=== PATIENT | female | born 1990 | race Caucasian/White ===

== ENCOUNTER 2022-02-11 10:28 | Inpatient (IN) | payer OTHER, SELFPAY ==
--- NOTE | ~2022-02-11 | CT_ITS ---
EXAMINATION: CT ABDOMEN AND PELVIS WITHOUT CONTRAST CLINICAL INFORMATION: Bilateral flank pain. COMPARISON: CT scan abdomen pelvis 06/30/2017 TECHNIQUE: Multidetector volumetric imaging was performed from the superior aspect of the liver through the pubic symphysis. Sagittal and coronal reformatted images were obtained on the technologist's workstation. This CT examination was performed using dose optimization techniques as appropriate, variously including the following: *Automated exposure control *Adjustment of mA and/or kV according to patient size (this includes techniques or standardized protocols for targeted exams where dose is matched to indication/reason for exam; i.e. extremities or head) *Use of iterative reconstruction technique DLP: 656 mGy-cm FINDINGS: LUNG BASES: Minor scarring or atelectasis at the dependent right posterior lung base. LIVER, GALLBLADDER, AND BILIARY TREE: The liver is normal in size, shape, and attenuation. No focal hepatic lesion or biliary ductal dilatation is present. The gallbladder is unremarkable with no evidence of radiopaque gallstones, gallbladder wall thickening, or obvious pericholecystic inflammatory changes. PANCREAS: Unremarkable. SPLEEN: Unremarkable. ADRENAL GLANDS: Unremarkable. KIDNEYS AND URETERS: The kidneys are normal in size, shape, and attenuation. No hydronephrosis, hydroureter, or calculi seen. No perinephric stranding. BLADDER: Unremarkable. GASTROINTESTINAL TRACT: The small and large bowel are unremarkable. The appendix is unremarkable. ABDOMINAL WALL: No significant hernia is appreciated. LYMPH NODES: Normal. VASCULAR: Unremarkable. PELVIC VISCERA: Unremarkable. OSSEOUS STRUCTURES: Multilevel degenerative spondylosis spine. Slight compression of the superior and inferior endplates with degenerative changes of endplates at L4. This is new since CAT scan 06/30/2017 but is chronic in appearance with no evidence of an acute bone lesion or bone destruction or acute fracture. Slight anterior wedge compression deformity T11 vertebrae which is chronic. The T11 wedge compression deformity is similar to prior CAT scan 06/30/2017. No retropulsed fragments. No acute osseous abnormality. Central spinal canal is open. CT/CT abdomen pelvis wo con IMPRESSION: 1. No acute abnormality the abdomen or pelvis. Normal kidneys ureter and bladder. 2. Degenerative changes of the spine. Chronic anterior wedge compression deformity of the T11 vertebrae unchanged since 06/30/2017. Slight compression of the superior and inferior endplates of the L4 vertebrae which appears to be chronic though new since prior study of 2017. Fleischner guidelines were followed.
--- NOTE | ~2022-02-11 | XR_ITS ---
EXAMINATION: XR CHEST CLINICAL INFORMATION: Fever. COMPARISON: Chest 06/30/2017 TECHNIQUE: Frontal view of the chest was obtained. FINDINGS: No significant abnormality is noted involving the heart, lungs, mediastinum, bony thorax or soft tissues. XR/XR chest 1V IMPRESSION: Unremarkable chest examination.
[2022-02-11 10:42] VITALS: BP 118/87; PULSE 89; RESP 20; TEMP 38.1; O2SAT 99; BMI 29.9
--- NOTE | 2022-02-11 12:44 | ED_ITS ---
HPI - General Adult General Chief complaint: Abdominal Pain Stated complaint: Kidney infection Time Seen by Provider: 02/11/22 12:36 Source: patient Mode of arrival: ambulatory Limitations: no limitations History of Present Illness HPI narrative: Patient comes to the emergency room complaining of bilateral flank pain and strong smell in the urine. Patient denies dysuria. No hematuria. Patient states that she has had history of pyelonephritis in the past. Patient admits to using IV drugs. Related Data Home Medications Medication Instructions Recorded Confirmed levetiracetam 500 mg tablet 1 tab PO BID 02/11/22 02/11/22 Allergies Allergy/AdvReac Type Severity Reaction Status Date / Time bee pollen [BEE STINGS] Allergy Severe ANAPHYLAXIS Unverified 08/13/20 16:20 divalproex sodium Allergy Unknown ITCHY RASH Unverified 08/13/20 16:20 [From DEPAKOTE] kiwi Allergy Unknown anaphylaxis Unverified 05/02/17 00:00 sertraline [Zoloft] Allergy Unknown anaphylaxis Verified 07/19/16 00:00 tegaderm Allergy Unknown rash Unverified 05/02/17 00:00 kiwi AdvReac Unknown DIFFICULTY Unverified 08/13/20 16:20 [KIWI (ACTINIDIA CHINENSIS)] BREATHING TEGIDERM Allergy Mild HIVES Uncoded 08/13/20 16:20 bee sting Allergy Unknown anaphylaxis Uncoded 07/19/16 00:00 bees Allergy Unknown anaphylaxis Uncoded 05/02/17 00:00 depakote Allergy Unknown syncope Uncoded 05/02/17 00:00 From Zoloft Allergy Unknown ANAPHYLAXIS Uncoded 08/13/20 16:20 Zoloft Allergy Unknown Uncoded 05/02/17 00:00 Review of Systems Review of Systems: Constitutional : No Weight loss, No Fever, No Chills, No Night Sweats, No Fatigue, No Malaise ENT/Mouth : No Hearing loss, No Ear Pain, No Nasal Congestion, No Sinus Pain, No Hoarseness, No sore throat, No Rhinorrhea, No Swallowing Difficulty Eyes: No Eye Pain, No Swelling, No Redness, No Foreign Body, No Discharge, No Vision Changes Cardiovascular : No Chest Pain, No SOB, No Dyspnea on Exertion, No Orthopnea, No Edema, No Palpitations Respiratory : No Cough, No Sputum, No Wheezing, No Smoke Exposure, No Dyspnea Gastrointestinal : No Nausea, No Vomiting, No Diarrhea, No Constipation, No abdominal Pain, No Hematochezia, No Melena Genitourinary : no irregular bleeding, No Dysuria, complaining of urinary frequency and strong odor, No Hematuria, No Urinary Incontinence, No Urgency, complaining of bilateral Flank Pain, No Urinary Flow Changes, No Hesitancy Musculoskeletal : No joint pain, No Myalgias, No Joint Swelling Skin : No Skin Lesions, No rash Neuro : No Weakness, No Numbness, No Paresthesias, No Loss of Consciousness, No Dizziness, No Headache Psych : No Anxiety/Panic, No Depression, No SI/HI/AH/VH, No Social Issues, Heme/Lymph: No Bruising, No Bleeding,No Lymphadenopathy Endocrine : No Polyuria, No Polydipsia, No Temperature Intolerance PMFSH Past Medical History Medical History Epilepsia Hepatitis Pyelonephritis Social History Social History Advance Directives: No Advance Directives Information Provided: No Physical Exam ED Vital Signs: Vital Signs - 24 hr 02/11/22 10:42 02/11/22 12:45 02/11/22 18:57 Temperature 100.6 F H 99.5 F 100.5 F H Pulse Rate 89 80 83 Respiratory Rate 20 18 20 Blood Pressure 118/87 114/62 109/63 Pulse Oximetry 99 96 95 02/11/22 19:20 Temperature 99.8 F Pulse Rate 77 Respiratory Rate 16 Blood Pressure 119/69 Pulse Oximetry 95 BMI result Body Mass Index 29.9 Const Other: Appearance: Alert. Somnolent, easily arousable Eyes: Pupils equal, round and reactive to light. 3 mm pupils bilaterally ENT: Pharynx normal. Neck: Normal inspection. Neck supple. No lymph nodes noted. No crepitus CVS: Normal heart rate and rhythm. Pulses normal. Normal S1 and S2 Respiratory: No respiratory distress. Breath sounds normal. No Wheezing. No rales Abdomen: Soft and nontender. No rigidity. No distention. Back: Bilateral CVA tenderness Skin: Skin warm to touch, mildly flushed Extremities: No lower extremity edema. No Lacerations. No Rash, needle track shepard in bilateral upper extremities, no signs of cellulitis Neuro: Oriented X 3. No motor deficit. No sensory deficit. Moving all extremities. No slurred speech. CN 2 through 12 grossly intact Psych: calm, cooperative, normal affect, seems under the influence of drugs Course Course Course Narrative: On arrival, it was noted that patient has a temperature of 100.6 degrees. Patient has UTI symptoms, patient is empirically being treated with levofloxa eunice, patient is receiving 2 L normal saline, fluids being given on an ideal weight of 55 kg, patient is overweight. Patient is a difficult stick. Multiple nurses try getting her parotid cyst. I was able to get an internal jugular on the right side of the neck 15:32, patient has not provided a urine sample. UA is positive, patient likely having pyelonephritis. Patient also seems to have some tenderness in the lumbar area. Patient is IV drug user. We will order CT scan to rule out an abscess. Patient has no neurological deficits Patient discussed with Dr. Zuleta, patient being admitted Medical Decision Making Lab Data Result diagrams: 02/11/22 14:57 02/11/22 14:57 Labs: Lab Results 02/11/22 02/11/22 02/11/22 Range/Units 14:57 14:57 14:57 WBC 13.9 H (4.8-10.8) X10*3/uL RBC 4.15 L (4.20-5.50) X10*6/uL Hgb 12.0 (12.0-16.0) g/dl Hct 37.0 (37.0-47.0) % MCV 89.2 (80.0-98.0) fL MCH 28.9 (27.0-33.0) pg MCHC 32.4 (31.0-35.0) g/dl RDW 14.9 (11.0-16.0) % Plt Count 248 (160-400) X10*3/uL MPV 9.1 L (9.4-12.3) fL Immature Gran % (Auto) 0.4 (0.0-0.4) % Neut % (Auto) 78.9 H (45-73) % Lymph % (Auto) 9.6 L (20-40) % Buchanan % (Auto) 10.8 (2-11) % Eos % (Auto) 0.1 (0-4) % Baso % (Auto) 0.2 (0-2) % Lymph # (Auto) 1.3 (1.2-4.9) X10*3/uL [place] # (Auto) 1.5 H (0.1-1.2) X10*3/uL Eos # (Auto) 0.0 (0.0-0.4) X10*3/uL Baso # (Auto) 0.0 (0.0-0.2) X10*3/uL Abs Immat Gran (auto) 0.05 H (0.00-0.03) X10*3/uL Absolute Neuts (auto) 10.9 H (2.0-8.3) x10*3/uL Absolute Nucleated RBC 0.000 (0.0-0.012) X10*3/uL Nucleated RBC % (auto) 0.0 (0.0-0.2) /100WBC Sodium 133 L (135-145) mmol/L Potassium 4.0 (3.3-5.1) mmol/L Chloride 99 (96-108) mmol/L Carbon Dioxide 28 (22-29) mmol/L Anion Gap 10 L (12-20) BUN 8 L (9-16) mg/dL Creatinine 0.77 (0.5-1.4) mg/dL Estim Creat Clear Calc 109.7 Estimated GFR > 60 Random Glucose 95 (60-115) mg/dL Lactic Acid 0.5 (0.5-2.0) mmol/L Calcium 9.2 (8.4-10.2) mg/dL Total Bilirubin 0.7 (0.0-1.0) mg/dL Direct Bilirubin 0.4 (0.0-0.5) mg/dL AST 17 (5-31) U/L ALT 15 (0-31) U/L Alkaline Phosphatase 65 (39-117) U/L Total Protein 6.9 (6.5-8.0) g/dL Albumin 3.8 (3.5-5.0) g/dL Urine Color Urine Appearance Urine pH (5.0-8.0) Ur Specific [place] (1.005-1.025) Urine Protein (NEG-TRACE) MG/DL Urine Glucose (UA) (NEG) MG/DL Urine Ketones (NEG) MG/DL Urine Blood (NEG) Urine Nitrite (NEG) Ur Leukocyte Esterase (NEG) Urine RBC (0) /HPF Urine WBC (0-4) /HPF Ur Squamous Epith Cells /LPF Urine Bacteria /LPF Urine Trichomonas Urine Test (NEGATIVE) Urine Opiates Screen (Not Detect) Urine Fentanyl Screen (Not Detect) Ur Barbiturates Screen (Not Detect) Ur Phencyclidine Scrn (Not Detect) Ur Amphetamines Screen (Not Detect) U Benzodiazepines Scrn (Not Detect) Urine Cocaine Screen (Not Detect) U Marijuana (THC) Screen (Not Detect) COVID-19 (ALBERTINA) (Negative) COVID-19 Clin Com 02/11/22 02/11/22 02/11/22 Range/Units 14:57 18:00 18:00 WBC (4.8-10.8) X10*3/uL RBC (4.20-5.50) X10*6/uL Hgb (12.0-16.0) g/dl Hct (37.0-47.0) % MCV (80.0-98.0) fL MCH (27.0-33.0) pg MCHC (31.0-35.0) g/dl RDW (11.0-16.0) % Plt Count (160-400) X10*3/uL MPV (9.4-12.3) fL Immature Gran % (Auto) (0.0-0.4) % Neut % (Auto) (45-73) % Lymph % (Auto) (20-40) % [place] % (Auto) (2-11) % Eos % (Auto) (0-4) % Baso % (Auto) (0-2) % Lymph # (Auto) (1.2-4.9) X10*3/uL [place] # (Auto) (0.1-1.2) X10*3/uL Eos # (Auto) (0.0-0.4) X10*3/uL Baso # (Auto) (0.0-0.2) X10*3/uL Abs Immat Gran (auto) (0.00-0.03) X10*3/uL Absolute Neuts (auto) (2.0-8.3) x10*3/uL Absolute Nucleated RBC (0.0-0.012) X10*3/uL Nucleated RBC % (auto) (0.0-0.2) /100WBC Sodium (135-145) mmol/L Potassium (3.3-5.1) mmol/L Chloride (96-108) mmol/L Carbon Dioxide (22-29) mmol/L Anion Gap (12-20) BUN (9-16) mg/dL Creatinine (0.5-1.4) mg/dL Estim Creat Clear Calc Estimated GFR Random Glucose (60-115) mg/dL Lactic Acid (0.5-2.0) mmol/L Calcium (8.4-10.2) mg/dL Total Bilirubin (0.0-1.0) mg/dL Direct Bilirubin (0.0-0.5) mg/dL AST (5-31) U/L ALT (0-31) U/L Alkaline Phosphatase (39-117) U/L Total Protein (6.5-8.0) g/dL Albumin (3.5-5.0) g/dL Urine Color YELLOW Urine Appearance HAZY Urine pH 7.0 (5.0-8.0) Ur Specific [place] <= 1.005 (1.005-1.025) Urine Protein 1+ H (NEG-TRACE) MG/DL Urine Glucose (UA) NEG (NEG) MG/DL Urine Ketones NEG (NEG) MG/DL Urine Blood 1+ H (NEG) Urine Nitrite NEG (NEG) Ur Leukocyte Esterase 3+ H (NEG) Urine RBC 1-4 (0) /HPF Urine WBC 10-14 H (0-4) /HPF Ur Squamous Epith Cells 1+ /LPF Urine Bacteria 3+ /LPF Urine Trichomonas NOTED Urine Test NEGATIVE (NEGATIVE) Urine Opiates Screen (Not Detect) Urine Fentanyl Screen (Not Detect) Ur Barbiturates Screen (Not Detect) Ur Phencyclidine Scrn (Not Detect) Ur Amphetamines Screen (Not Detect) U Benzodiazepines Scrn (Not Detect) Urine Cocaine Screen (Not Detect) U Marijuana (THC) Screen (Not Detect) COVID-19 (ALBERTINA) Negative (Negative) COVID-19 Clin Com See Note 02/11/22 Range/Units 18:00 WBC (4.8-10.8) X10*3/uL RBC (4.20-5.50) X10*6/uL Hgb (12.0-16.0) g/dl Hct (37.0-47.0) % MCV (80.0-98.0) fL MCH (27.0-33.0) pg MCHC (31.0-35.0) g/dl RDW (11.0-16.0) % Plt Count (160-400) X10*3/uL MPV (9.4-12.3) fL Immature Gran % (Auto) (0.0-0.4) % Neut % (Auto) (45-73) % Lymph % (Auto) (20-40) % [place]anan % (Auto) (2-11) % Eos % (Auto) (0-4) % Baso % (Auto) (0-2) % Lymph # (Auto) (1.2-4.9) X10*3/uL [place] # (Auto) (0.1-1.2) X10*3/uL Eos # (Auto) (0.0-0.4) X10*3/uL Baso # (Auto) (0.0-0.2) X10*3/uL Abs Immat Gran (auto) (0.00-0.03) X10*3/uL Absolute Neuts (auto) (2.0-8.3) x10*3/uL Absolute Nucleated RBC (0.0-0.012) X10*3/uL Nucleated RBC % (auto) (0.0-0.2) /100WBC Sodium (135-145) mmol/L Potassium (3.3-5.1) mmol/L Chloride (96-108) mmol/L Carbon Dioxide (22-29) mmol/L Anion Gap (12-20) BUN (9-16) mg/dL Creatinine (0.5-1.4) mg/dL Estim Creat Clear Calc Estimated GFR Random Glucose (60-115) mg/dL Lactic Acid (0.5-2.0) mmol/L Calcium (8.4-10.2) mg/dL Total Bilirubin (0.0-1.0) mg/dL Direct Bilirubin (0.0-0.5) mg/dL AST (5-31) U/L ALT (0-31) U/L Alkaline Phosphatase (39-117) U/L Total Protein (6.5-8.0) g/dL Albumin (3.5-5.0) g/dL Urine Color Urine Appearance Urine pH (5.0-8.0) Ur Specific [place] (1.005-1.025) Urine Protein (NEG-TRACE) MG/DL Urine Glucose (UA) (NEG) MG/DL Urine Ketones (NEG) MG/DL Urine Blood (NEG) Urine Nitrite (NEG) Ur Leukocyte Esterase (NEG) Urine RBC (0) /HPF Urine WBC (0-4) /HPF Ur Squamous Epith Cells /LPF Urine Bacteria /LPF Urine Trichomonas Urine Test (NEGATIVE) Urine Opiates Screen POSITIVE H (Not Detect) Urine Fentanyl Screen POSITIVE H (Not Detect) Ur Barbiturates Screen Not Detected (Not Detect) Ur Phencyclidine Scrn Not Detected (Not Detect) Ur Amphetamines Screen Not Detected (Not Detect) U Benzodiazepines Scrn Not Detected (Not Detect) Urine Cocaine Screen POSITIVE H (Not Detect) U Marijuana (THC) Screen POSITIVE H (Not Detect) COVID-19 (ALBERTINA) (Negative) COVID-19 Clin Com Discharge Plan Discharge Clinical Impression: Pyelonephritis Patient Disposition: Admitted As Inpatient Prescriptions: No Action levetiracetam 500 mg tablet 1 tab PO BID 0RF
[2022-02-11 12:45] VITALS: BP 114/62; PULSE 80; RESP 18; TEMP 37.5; O2SAT 96
[2022-02-11 15:03] LABS: MANUAL DIFF FLAG NO
[2022-02-11 15:04] LABS: Basophils Percent Auto 0.2 % (0-2); Eosinophils Percent Auto 0.1 % (0-4); Imm Gran Abs Auto 0.05 X10*3/uL (0.00-0.03); Imm Gran Pct Auto 0.4 % (0.0-0.4); Lymphocytes Absolute Auto 1.3 X10*3/uL (1.2-4.9); Lymphocytes Percent Auto 9.6 % (20-40); Mean Corpuscular HGB Conc 32.4 g/dl (31.0-35.0); Mean Corpuscular Hemoglobin 28.9 pg (27.0-33.0); Mean Corpuscular Volume 89.2 fL (80.0-98.0); Mean Platelet Volume 9.1 fL (9.4-12.3); Monocytes Absolute Auto 1.5 X10*3/uL (0.1-1.2); Monocytes Percent Auto 10.8 % (2-11); Neutrophils Absolute Auto 10.9 x10*3/uL (2.0-8.3); Neutrophils Percent Auto 78.9 % (45-73); Platelet Count 248 X10*3/uL (160-400); Red Blood Count 4.15 X10*6/uL (4.20-5.50); Red Cell Distribution Width 14.9 % (11.0-16.0); White Blood Count 13.9 X10*3/uL (4.8-10.8)
[2022-02-11] MEDS: 0.9 % Sodium Chloride 2,000 ML 999 ML IVCONT (15:05)
[2022-02-11 15:14] LABS: Lactic Acid 0.5 mmol/L (0.5-2.0)
[2022-02-11] MEDS: Acetaminophen 325 MG TABLET 650 MG PO (15:15)
[2022-02-11] MEDS: levoFLOXacin/D5W 500 MG/100 ML PIGGYBACK 100 MG IV (15:16)
[2022-02-11 15:18] LABS: COVID-19 Test Negative (Negative)
[2022-02-11 15:19] LABS: Anion Gap 10 (12-20); Blood Urea Nitrogen 8 mg/dL (9-16); Calcium 9.2 mg/dL (8.4-10.2); Carbon Dioxide 28 mmol/L (22-29); Chloride 99 mmol/L (96-108); Creatinine Clr Calc Pharmacy 109.7; Estimated Glomerular Filt Rate > 60; Glucose Random 95 mg/dL (60-115); Sodium 133 mmol/L (135-145)
[2022-02-11 15:20] LABS: Alanine Aminotransferase 15 U/L (0-31); Albumin Level 3.8 g/dL (3.5-5.0); Alkaline Phosphatase 65 U/L (39-117); Aspartate Amino Transferase 17 U/L (5-31); Bilirubin Direct 0.4 mg/dL (0.0-0.5); Bilirubin Total 0.7 mg/dL (0.0-1.0); Total Protein 6.9 g/dL (6.5-8.0)
[2022-02-11 18:10] LABS: Appearance Urine HAZY; Color Urine YELLOW; Glucose Urine UA NEG (NEG); Leukocyte Esterase Urine 3+ (NEG); Nitrite Urine NEG (NEG); Specific Gravity - Urine <= 1.005 (1.005-1.025); UACC Culture Trigger YES; Urine Blood 1+ (NEG); Urine Ketones NEG (NEG); Urine Protein 1+ MG/DL (NEG-TRACE)
[2022-02-11 18:12] LABS: UPreg QC Valid YES; Urine Pregnancy NEGATIVE (NEGATIVE)
[2022-02-11 18:22] LABS: Amphetamine Screen Urine Not Detected (Not Detect); Bacteria Urine 3+ /LPF; Barbiturates, Urine Not Detected (Not Detect); Benzodiazepines Screen Urine Not Detected (Not Detect); Cannabinoid Screen Urine POSITIVE (Not Detect); Cocaine Screen Urine POSITIVE (Not Detect); Fentanyl, urine POSITIVE (Not Detect); Opiate Screen Urine POSITIVE (Not Detect); Phencyclidine Screen Urine Not Detected (Not Detect); Squamous Epithelial Cell Urine 1+ /LPF
[2022-02-11 18:23] LABS: Trichomonas Urine NOTED
[2022-02-11 18:57] VITALS: BP 109/63; PULSE 83; RESP 20; TEMP 38.1; O2SAT 95
[2022-02-11 19:20] VITALS: BP 119/69; PULSE 77; RESP 16; TEMP 37.7; O2SAT 95
--- NOTE | 2022-02-11 20:45 | PHA.MEDREC ---
Pharmacy Consult ? Medication Reconciliation Pharmacy has completed the medication reconciliation.
[2022-02-11 22:00] VITALS: BP 109/63; PULSE 74; RESP 16; TEMP 37.8; O2SAT 97
--- NOTE | 2022-02-11 22:04 | P.HPHOSP_ITS ---
History of Present Illness Date of Service: 02/11/22 Chief Complaint: bilateral flank pain 31-year-old female with a past medical history of IV drug abuse - heroin abuse, epilepsy, tobacco dependence, history of UTIs; presented to the hospital today with a chief complaint of bilateral flank pain. Patient reported that over the past 2 days been having bilateral flank pain; also complains of urinary frequency urgency and burning; associated subjective fevers at home. Hence decided to come to the ER for further evaluation. Denies any blood in the urine. Patient denies any numbness tingling or focal weakness. Denies any urinary retention or stool . Reports he has back pain as well; denies any fall or injury. Mentions that he uses heroin on a regular basis last use the day before; Denies any chest pain or palpitations. Denies any shortness of breath. Denies any nausea vomiting or diarrhea. Review of all other systems is negative except mentioned above ER course: Per ER team patient noted to bilateral flank tenderness; urinalysis abnormal consistent with UTI; given levofloxacin; admitted to the hospital for further management PMFSH Medical History Epilepsia Hepatitis Pyelonephritis Pertinent family history: reviewed Social History Advance Directives: No Advance Directives Information Provided: No Meds Allergies Allergy/AdvReac Type Severity Reaction Status Date / Time bee pollen [BEE STINGS] Allergy Severe ANAPHYLAXIS Unverified 08/13/20 16:20 divalproex sodium Allergy Unknown ITCHY RASH Unverified 08/13/20 16:20 [From DEPAKOTE] kiwi Allergy Unknown anaphylaxis Unverified 05/02/17 00:00 sertraline [Zoloft] Allergy Unknown anaphylaxis Verified 07/19/16 00:00 tegaderm Allergy Unknown rash Unverified 05/02/17 00:00 kiwi AdvReac Unknown DIFFICULTY Unverified 08/13/20 16:20 [KIWI (ACTINIDIA CHINENSIS)] BREATHING TEGIDERM Allergy Mild HIVES Uncoded 08/13/20 16:20 bee sting Allergy Unknown anaphylaxis Uncoded 07/19/16 00:00 bees Allergy Unknown anaphylaxis Uncoded 05/02/17 00:00 depakote Allergy Unknown syncope Uncoded 05/02/17 00:00 From Zoloft Allergy Unknown ANAPHYLAXIS Uncoded 08/13/20 16:20 Zoloft Allergy Unknown Uncoded 05/02/17 00:00 Active Medications: Current Medications Acetaminophen (Acetaminophen 325 Mg Tablet) 650 mg PO Q6H PRN PRN Reason: Pain, Mild (Pain Scale 1-3) Clonidine HCl (Clonidine Hcl 0.1 Mg Tablet) 0.1 mg PO BID PRN; Protocol PRN Reason: anxiety/restlessness Dextrose/Sodium Chloride (D51/2ns) 1,000 mls @ 100 mls/hr IVCONT .Q10H JUDY Levofloxacin (Levaquin) 750 mg in 150 mls @ 100 mls/hr IV Q24H JUDY Levetiracetam (Levetiracetam 500 Mg Tablet) 500 mg PO BID JUDY Melatonin (Melatonin 3 Mg Tablet) 6 mg PO BEDTIME PRN PRN Reason: Insomnia Pharmacy Consult (Consult Rx Perform Med Rec) 1 each MISCELLANE ONCE PRN PRN Reason: Consult order Senna (Sennosides 8.6 Mg Tablet) 17.2 mg PO BEDTIME PRN PRN Reason: Constipation Sodium Chloride (0.9 % Sodium Chloride Flush 3 Ml Syringe) 3 ml IVFLUSH QSHIFT [facility] Home Medications Medication Instructions Recorded Confirmed Last Taken Type levetiracetam 500 mg tablet 1 tab PO BID 02/11/22 02/11/22 02/11/22 History Physical Exam Vital Signs and Narrative: Vital Signs: Last Vital Signs Temp 99.8 F 02/11/22 19:20 Pulse 77 02/11/22 19:20 Resp 16 02/11/22 19:20 BP 119/69 02/11/22 19:20 Pulse Ox 95 02/11/22 19:20 BMI result Body Mass Index 29.9 Gen: Appears be in no acute distress HEENT: NCAT, Moist mucosa. Pulmonary: Vesicular breath sounds, fair air entry CVS: Normal S1-S2 Abdomen: BS+, Soft, Nontender; bilateral flank tenderness noted; bilateral CVA tenderness noted; noted mild tenderness on her lumbar spine revealed L3-L4 area; no gross skin changes or swelling noted; Extremities: Warm well perfused Neuro: Alert and awake. nonfocal exam Results Labs CBC and Chem 7: 02/11/22 14:57 02/11/22 14:57 Labs: Laboratory Results - last 24 hr 02/11/22 02/11/22 02/11/22 14:57 14:57 14:57 MCV 89.2 MCH 28.9 MCHC 32.4 RDW 14.9 Plt Count 248 MPV 9.1 L Immature Gran % (Auto) 0.4 Neut % (Auto) 78.9 H Lymph % (Auto) 9.6 L [place] % (Auto) 10.8 Eos % (Auto) 0.1 Baso % (Auto) 0.2 Lymph # (Auto) 1.3 Gordon # (Auto) 1.5 H Eos # (Auto) 0.0 Baso # (Auto) 0.0 Abs Immat Gran (auto) 0.05 H Absolute Neuts (auto) 10.9 H Absolute Nucleated RBC 0.000 Nucleated RBC % (auto) 0.0 Anion Gap 10 L Estim Creat Clear Calc 109.7 Estimated GFR > 60 Random Glucose 95 Lactic Acid 0.5 Calcium 9.2 Total Bilirubin 0.7 Direct Bilirubin 0.4 AST 17 ALT 15 Alkaline Phosphatase 65 Total Protein 6.9 Albumin 3.8 Urine Color Urine Appearance Urine pH Ur Specific [place] Urine Protein Urine Glucose (UA) Urine Ketones Urine Blood Urine Nitrite Ur Leukocyte Esterase Urine RBC Urine WBC Ur Squamous Epith Cells Urine Bacteria Urine Trichomonas Urine Test Urine Opiates Screen Urine Fentanyl Screen Ur Barbiturates Screen Ur Phencyclidine Scrn Ur Amphetamines Screen U Benzodiazepines Scrn Urine Cocaine Screen U Marijuana (THC) Screen COVID-19 (ALBERTINA) COVID-19 Clin Com 02/11/22 02/11/22 02/11/22 14:57 18:00 18:00 MCV MCH MCHC RDW Plt Count MPV Immature Gran % (Auto) Neut % (Auto) Lymph % (Auto) [place] % (Auto) Eos % (Auto) Baso % (Auto) Lymph # (Auto) Gordon # (Auto) Eos # (Auto) Baso # (Auto) Abs Immat Gran (auto) Absolute Neuts (auto) Absolute Nucleated RBC Nucleated RBC % (auto) Anion Gap Estim Creat Clear Calc Estimated GFR Random Glucose Lactic Acid Calcium Total Bilirubin Direct Bilirubin AST ALT Alkaline Phosphatase Total Protein Albumin Urine Color YELLOW Urine Appearance HAZY Urine pH 7.0 Ur Specific [place] <= 1.005 Urine Protein 1+ H Urine Glucose (UA) NEG Urine Ketones NEG Urine Blood 1+ H Urine Nitrite NEG Ur Leukocyte Esterase 3+ H Urine RBC 1-4 Urine WBC 10-14 H Ur Squamous Epith Cells 1+ Urine Bacteria 3+ Urine Trichomonas NOTED Urine Test NEGATIVE Urine Opiates Screen Urine Fentanyl Screen Ur Barbiturates Screen Ur Phencyclidine Scrn Ur Amphetamines Screen U Benzodiazepines Scrn Urine Cocaine Screen U Marijuana (THC) Screen COVID-19 (ALBERTINA) Negative COVID-19 Clin Com See Note 02/11/22 18:00 MCV MCH MCHC RDW Plt Count MPV Immature Gran % (Auto) Neut % (Auto) Lymph % (Auto) [place] % (Auto) Eos % (Auto) Baso % (Auto) Lymph # (Auto) [place] # (Auto) Eos # (Auto) Baso # (Auto) Abs Immat Gran (auto) Absolute Neuts (auto) Absolute Nucleated RBC Nucleated RBC % (auto) Anion Gap Estim Creat Clear Calc Estimated GFR Random Glucose Lactic Acid Calcium Total Bilirubin Direct Bilirubin AST ALT Alkaline Phosphatase Total Protein Albumin Urine Color Urine Appearance Urine pH Ur Specific [place] Urine Protein Urine Glucose (UA) Urine Ketones Urine Blood Urine Nitrite Ur Leukocyte Esterase Urine RBC Urine WBC Ur Squamous Epith Cells Urine Bacteria Urine Trichomonas Urine Test Urine Opiates Screen POSITIVE H Urine Fentanyl Screen POSITIVE H Ur Barbiturates Screen Not Detected Ur Phencyclidine Scrn Not Detected Ur Amphetamines Screen Not Detected U Benzodiazepines Scrn Not Detected Urine Cocaine Screen POSITIVE H U Marijuana (THC) Screen POSITIVE H COVID-19 (ALBERTINA) COVID-19 Clin Com Imaging Radiologist's Impressions: Impressions Chest X-Ray 02/11/22 13:43 IMPRESSION: Unremarkable chest examination. Abdomen/Pelvis CT 02/11/22 21:13 IMPRESSION: 1. No acute abnormality the abdomen or pelvis. Normal kidneys ureter and bladder. 2. Degenerative changes of the spine. Chronic anterior wedge compression deformity of the T11 vertebrae unchanged since 06/30/2017. Slight compression of the superior and inferior endplates of the L4 vertebrae which appears to be chronic though new since prior study of 2017. Fleischner guidelines were followed. Assessment and Plan (1) Pyelonephritis: Status: Acute Plan 31-year-old female with a past medical history of IV drug abuse - heroin abuse, epilepsy, tobacco dependence, history of UTIs; presented to the hospital today with a chief complaint of bilateral flank pain. abnormal urinalysis consistent with UTI/pyelonephritis. Admitted for further management. UTI/ pyelonephritis: CT abdomen showed no acute findings Continue IV levofloxacin Follow-up cultures Id consult Back pain: Patient has mild lumbar tenderness; no focal neurological deficits on exam. per discussion with radiologist-no obvious fracture, enhancement, spinal narrowing, bone destruction noted on the CT abdomen pelvis around the lumbar spine. Pain control will obtain ESR and CRP opiate abuse: Monitor on COWS protocol. Clonidine p.r.n.. Addiction Medicine consult. history of epilepsy: Continue home Keppra DVT prophylaxis: Lovenox Code status: Full code Quality Stroke Does the patient have a stroke diagnosis?: No VTE Prior VTE?: No VTE Risk Level:: Medical - moderate - high VTE Device Contraindication: Treatment Not Indicated VTE Drug Contraindication: N/A - Med Ordered
[2022-02-11 22:58] LABS: C Reactive Protein 12.07 mg/dL (< or = 0.50)
[2022-02-12] VITALS: PULSE 85
[2022-02-12 00:07] VITALS: BP 122/82; PULSE 85; RESP 16; TEMP 38.7; O2SAT 96
[2022-02-12] MEDS: Dextrose 5 % and 0.45 % NaCl 1,000 ML 100 ML IVCONT ×2 (00:29→09:43)
[2022-02-12] MEDS: 0.9 % Sodium Chloride Flush 3 ML SYRINGE IVFLUSH (00:29)
[2022-02-12] MEDS: Enoxaparin Sodium 40 MG/0.4 ML SYRINGE SUBCUT (00:43)
--- NOTE | 2022-02-12 01:21 | PC.NURSE ---
PT SEEN AND ASSESSED. TEMP 101.6. PT NAUSEATED AND VOMITTED LARGE AMOUNT. CONTACTED DR NAPOLES AND ZOFRAN ORDERED. PT RECEIVING D51/2NS AT 100 ML/HR. ICE CHIPS PO. WILL GIVE TYLENOL PO WHEN ZOFRAN WORKS AND NOT NAUSEATED ANYMORE. PT OOB TO BEDSIDE COMMODE TO VOID JUAN URINE.
[2022-02-12] MEDS: ondansetron HCL 4 MG/2 ML VIAL IVPUSH (01:29)
[2022-02-12] MEDS: Acetaminophen 325 MG TABLET 650 MG PO (01:31)
[2022-02-12 02:15] VITALS: TEMP 37.4
--- NOTE | 2022-02-12 02:25 | PC.NURSE ---
TEMP CAME DOWN TO 99.3 PO. NO FURTHER VOMITTING. REPORT GIVEN AND PT TRANSFERRED TO ED OVERFLOW UNIT.
[2022-02-12 06:38] VITALS: BP 116/78; PULSE 80; TEMP 37.2; O2SAT 97
[2022-02-12 06:49] LABS: Basophils Absolute Auto 0.1 X10*3/uL (0.0-0.2); Basophils Percent Auto 0.3 % (0-2); Hematocrit 37.1 % (37.0-47.0); Hemoglobin 12.6 g/dl (12.0-16.0); Imm Gran Abs Auto 0.11 X10*3/uL (0.00-0.03); Imm Gran Pct Auto 0.6 % (0.0-0.4); Lymphocytes Absolute Auto 1.4 X10*3/uL (1.2-4.9); Lymphocytes Percent Auto 7.7 % (20-40); MANUAL DIFF FLAG SCAN; Mean Corpuscular Hemoglobin 29.5 pg (27.0-33.0); Mean Corpuscular Volume 86.9 fL (80.0-98.0); Mean Platelet Volume 10.5 fL (9.4-12.3); Monocytes Percent Auto 10.8 % (2-11); Neutrophils Absolute Auto 15.1 x10*3/uL (2.0-8.3); Neutrophils Percent Auto 80.6 % (45-73); Platelet Count 239 X10*3/uL (160-400); Red Blood Count 4.27 X10*6/uL (4.20-5.50); Red Cell Distribution Width 14.6 % (11.0-16.0); SCAN SMEAR FLAG 1; White Blood Count 18.7 X10*3/uL (4.8-10.8)
[2022-02-12 07:13] LABS: SLIDE REVIEW VERIFIED
[2022-02-12 07:36] LABS: Anion Gap 21 (12-20); Blood Urea Nitrogen 10 mg/dL (9-16); Calcium 9.3 mg/dL (8.4-10.2); Carbon Dioxide 16 mmol/L (22-29); Chloride 105 mmol/L (96-108); Creatinine Clr Calc Pharmacy 106.8; Estimated Glomerular Filt Rate > 60; Glucose Random 114 mg/dL (60-115); Potassium 4.3 mmol/L (3.3-5.1); Sodium 138 mmol/L (135-145)
[2022-02-12] MEDS: levETIRAcetam 500 MG TABLET PO (09:42)
[2022-02-12] MEDS: cefTRIAXone sodium 1 GM in 0.9 % Sodium Chloride 50 ML IV (09:43)
--- NOTE | 2022-02-12 09:56 | PC.NURSE ---
Pt is sleeping at this time, arouses to name, states she just wants to sleep. Pain remains to bilateral flanks, but pt doesn't give it a number at this time. IV to R EJ was kinked, dressing removed, IV fixed and flushed by this RN. New dressing put in place. Flanks are TTP, abd is soft and non tender, pt ambulates with no assistance at this time. Pt is A&Ox3, lungs diminished at this time. Call dupont within reach. Medicated as per MAR orders with Keppra and IV antibiotics. Will continue to monitor.
--- NOTE | 2022-02-12 10:04 | PC.NURSE ---
Pt OOB to BR, upon returning to the room, pt is asking to go home. Hospitalist made aware.
--- NOTE | 2022-02-12 11:09 | P.DS_ITS ---
DS: Providers Provider Date of Service: 02/12/22 Date of admission: 02/11/22 21:25 Primary care physician: Unknown Physician Consults: 02/11/22 21:30 Addiction Medicine Routine Consulting Provider: Bina Maddox Reason for consultation: heroin abuse Attending physician on discharge: Wali Blank Discharging clinician: Shabana Arevalo DS: Diagnosis Discharge Diagnosis (1) Pyelonephritis: Status: Acute DS: Summary Hospital Course Hospital Course: HP as per admitting provider 31-year-old female with a past medical history of IV drug abuse - heroin abuse, epilepsy, tobacco dependence, history of UTIs; presented to the hospital today with a chief complaint of bilateral flank pain.? Patient reported that over the past 2 days been having bilateral flank pain; also complains of urinary frequency urgency and burning; associated subjective fevers at home.? Hence decided to come to the ER for further evaluation.? Denies any blood in the urine.?Patient denies any numbness tingling or focal weakness.? Denies any urinary retention or stool. Reports he has back pain as well; denies any fall or injury.?Mentions that he uses heroin on a regular basis last use the day before; Denies any chest pain or palpitations.? Denies any shortness of breath.? Denies any nausea vomiting or diarrhea.?Review of all other systems is negative except mentioned above ER course: Per ER team patient noted to bilateral flank tenderness; urinalysis abnormal consistent with UTI; given levofloxacin; admitted to the hospital for further management Patient admitted for pyelonephritis, UTI, was started on IV antibiotics however she woke up this morning and decided she wanted to leave against medical advice. Her right IJ was removed and was red and a little swollen, she was told that she should stay for observation of this and she said that she does not want to stay and she would sign against medical advice. She was told that she has not completed her treatment for her initial admission and her symptoms could worsen, her actions could even cause but she still agreed to sign against medical advice. Antibiotic sent to her pharmacy to complete treatment. Time Spent with Patient Time attestation: Total time spent providing and/or coordinating discharge services: Discharge coordination time: Greater than 30 minutes Quality: Stroke Does the patient have a stroke diagnosis?: No Physical Exam Vital Signs: Vital Signs: Last Vital Signs Temp 98.9 F 02/12/22 06:38 Pulse 80 02/12/22 06:38 Resp 16 02/12/22 00:07 BP 116/78 02/12/22 06:38 Pulse Ox 97 02/12/22 06:38 BMI result Body Mass Index 29.9 Unable to examine as patient left against medical advice DS: Data Data Completed and Pending Labs on day of discharge: Laboratory Results - last 24 hr 02/11/22 02/11/22 02/11/22 14:57 14:57 14:57 WBC 13.9 H RBC 4.15 L Hgb 12.0 Hct 37.0 MCV 89.2 MCH 28.9 MCHC 32.4 RDW 14.9 Plt Count 248 MPV 9.1 L Immature Gran % (Auto) 0.4 Neut % (Auto) 78.9 H Lymph % (Auto) 9.6 L [place] % (Auto) 10.8 Eos % (Auto) 0.1 Baso % (Auto) 0.2 Lymph # (Auto) 1.3 [place] # (Auto) 1.5 H Eos # (Auto) 0.0 Baso # (Auto) 0.0 Abs Immat Gran (auto) 0.05 H Absolute Neuts (auto) 10.9 H Absolute Nucleated RBC 0.000 Nucleated RBC % (auto) 0.0 Smear Tech's Comments Sodium 133 L Potassium 4.0 Chloride 99 Carbon Dioxide 28 Anion Gap 10 L BUN 8 L Creatinine 0.77 Estim Creat Clear Calc 109.7 Estimated GFR > 60 Random Glucose 95 Lactic Acid 0.5 Calcium 9.2 Total Bilirubin 0.7 Direct Bilirubin 0.4 AST 17 ALT 15 Alkaline Phosphatase 65 C-Reactive Protein 12.07 H Total Protein 6.9 Albumin 3.8 Urine Color Urine Appearance Urine pH Ur Specific [place] Urine Protein Urine Glucose (UA) Urine Ketones Urine Blood Urine Nitrite Ur Leukocyte Esterase Urine RBC Urine WBC Ur Squamous Epith Cells Urine Bacteria Urine Trichomonas Urine Test Urine Opiates Screen Urine Fentanyl Screen Ur Barbiturates Screen Ur Phencyclidine Scrn Ur Amphetamines Screen U Benzodiazepines Scrn Urine Cocaine Screen U Marijuana (THC) Screen COVID-19 (ALBERTINA) COVID-19 Clin Com 02/11/22 02/11/22 02/11/22 14:57 18:00 18:00 WBC RBC Hgb Hct MCV MCH MCHC RDW Plt Count MPV Immature Gran % (Auto) Neut % (Auto) Lymph % (Auto) [place] % (Auto) Eos % (Auto) Baso % (Auto) Lymph # (Auto) [place] # (Auto) Eos # (Auto) Baso # (Auto) Abs Immat Gran (auto) Absolute Neuts (auto) Absolute Nucleated RBC Nucleated RBC % (auto) Smear Tech's Comments Sodium Potassium Chloride Carbon Dioxide Anion Gap BUN Creatinine Estim Creat Clear Calc Estimated GFR Random Glucose Lactic Acid Calcium Total Bilirubin Direct Bilirubin AST ALT Alkaline Phosphatase C-Reactive Protein Total Protein Albumin Urine Color YELLOW Urine Appearance HAZY Urine pH 7.0 Ur Specific [place] <= 1.005 Urine Protein 1+ H Urine Glucose (UA) NEG Urine Ketones NEG Urine Blood 1+ H Urine Nitrite NEG Ur Leukocyte Esterase 3+ H Urine RBC 1-4 Urine WBC 10-14 H Ur Squamous Epith Cells 1+ Urine Bacteria 3+ Urine Trichomonas NOTED Urine Test NEGATIVE Urine Opiates Screen Urine Fentanyl Screen Ur Barbiturates Screen Ur Phencyclidine Scrn Ur Amphetamines Screen U Benzodiazepines Scrn Urine Cocaine Screen U Marijuana (THC) Screen COVID-19 (ALBERTINA) Negative COVID-19 Clin Com See Note 02/11/22 02/12/22 02/12/22 18:00 06:16 06:16 WBC 18.7 H RBC 4.27 Hgb 12.6 Hct 37.1 MCV 86.9 MCH 29.5 MCHC 34.0 RDW 14.6 Plt Count 239 MPV 10.5 Immature Gran % (Auto) 0.6 H Neut % (Auto) 80.6 H Lymph % (Auto) 7.7 L [place] % (Auto) 10.8 Eos % (Auto) 0.0 Baso % (Auto) 0.3 Lymph # (Auto) 1.4 [place] # (Auto) 2.0 H Eos # (Auto) 0.0 Baso # (Auto) 0.1 Abs Immat Gran (auto) 0.11 H Absolute Neuts (auto) 15.1 H Absolute Nucleated RBC 0.000 Nucleated RBC % (auto) 0.0 Smear Tech's Comments VERIFIED Sodium 138 Potassium 4.3 Chloride 105 Carbon Dioxide 16 L Anion Gap 21 H BUN 10 Creatinine 0.79 Estim Creat Clear Calc 106.8 Estimated GFR > 60 Random Glucose 114 Lactic Acid Calcium 9.3 Total Bilirubin Direct Bilirubin AST ALT Alkaline Phosphatase C-Reactive Protein Total Protein Albumin Urine Color Urine Appearance Urine pH Ur Specific [place] Urine Protein Urine Glucose (UA) Urine Ketones Urine Blood Urine Nitrite Ur Leukocyte Esterase Urine RBC Urine WBC Ur Squamous Epith Cells Urine Bacteria Urine Trichomonas Urine Test Urine Opiates Screen POSITIVE H Urine Fentanyl Screen POSITIVE H Ur Barbiturates Screen Not Detected Ur Phencyclidine Scrn Not Detected Ur Amphetamines Screen Not Detected U Benzodiazepines Scrn Not Detected Urine Cocaine Screen POSITIVE H U Marijuana (THC) Screen POSITIVE H COVID-19 (ALBERTINA) COVID-19 Clin Com Preliminary micro results at discharge 02/11/22 18:31 Urine Culture - Preliminary Urine clean catch - Urine isaac top No growth to date. Discharge Plan Discharge Anticipated Discharge Date/Time: 02/12/22 11:13 Patient Disposition: Left Against Medical Advice Discharge Diagnosis: pyelonephritis Referrals: Physician,Unknown J [Primary Care Provider] - 1 Week Discharge Medications: New cefuroxime axetil 500 mg tablet 500 mg PO BID Qty: 10 0RF No Action levetiracetam 500 mg tablet 1 tab PO BID 0RF Discharge Orders: Discharge Order (Routine); Ordered 02/12/22 Ordered By: Shabana Arevalo Diet: advance to usual diet Activity on Discharge: As tolerated Care Plan Goals: resolution of symptoms Health Concerns: pyelonephritis Plan of Treatment: Patient left against medical advice, she was told to complete antibiotic therapy Assessment: see discharge summary
--- NOTE | 2022-02-12 11:25 | P.PNADD_ITS ---
Subjective Subjective Date of Service: 02/12/22 Reason For Visit: Pyelonephritis Interim History: Patient is a 31 year old female with OUD currently medically admitted with pyelonephritis consult requested to assess and treat OUD Patient seen briefly in overflow bed 9. Laying in bed, under blankets, asleep, but easily awakened. She denies any withdrawl symptoms at this time Reports last use was prior to presenting to ED Reports 3 bundles IV heroin use daily Denies any history of methadone treatment--citing lack of photo ID as a barrier Discussed treating withdrawal and initiating treatment if patient wishes. She responded that she wishes to start treatment while here. Advised patient to notify nursing when she was ready for methadone as this mortgage loan underwriter would place order. Tiffanie verbalized understanding and asked to go back to sleep. Review of Systems Review of Systems Patient denies any withdrawal sx including nausea, loose stools, chills, boady aches Mental Status Exam Mental Status Exam Patient Appearance: Appropriate Level of Consciousness: Awake and Appropriate Patient Behavior: Appropriate Affect Description: Calm Diagnostics Vital Signs (24Hr): Vital Signs - 24 hr 02/11/22 12:45 02/11/22 18:57 02/11/22 19:20 Temperature 99.5 F 100.5 F H 99.8 F Pulse Rate 80 83 77 Respiratory Rate 18 20 16 Blood Pressure 114/62 109/63 119/69 Pulse Oximetry 96 95 95 02/11/22 22:00 02/12/22 00:07 02/12/22 02:15 Temperature 100.0 F 101.6 F H 99.3 F Pulse Rate 74 85 Respiratory Rate 16 16 Blood Pressure 109/63 122/82 Pulse Oximetry 97 96 02/12/22 06:38 Temperature 98.9 F Pulse Rate 80 Respiratory Rate Blood Pressure 116/78 Pulse Oximetry 97 BMI result Body Mass Index 29.9 Labs Results: 02/12/22 06:16 02/12/22 06:16 Labs: Laboratory Results - last 48 hr 02/11/22 02/11/22 02/11/22 14:57 14:57 14:57 WBC 13.9 H RBC 4.15 L Hgb 12.0 Hct 37.0 MCV 89.2 MCH 28.9 MCHC 32.4 RDW 14.9 Plt Count 248 MPV 9.1 L Immature Gran % (Auto) 0.4 Neut % (Auto) 78.9 H Lymph % (Auto) 9.6 L [place] % (Auto) 10.8 Eos % (Auto) 0.1 Baso % (Auto) 0.2 Lymph # (Auto) 1.3 [place] # (Auto) 1.5 H Eos # (Auto) 0.0 Baso # (Auto) 0.0 Abs Immat Gran (auto) 0.05 H Absolute Neuts (auto) 10.9 H Absolute Nucleated RBC 0.000 Nucleated RBC % (auto) 0.0 Smear Tech's Comments Sodium 133 L Potassium 4.0 Chloride 99 Carbon Dioxide 28 Anion Gap 10 L BUN 8 L Creatinine 0.77 Estim Creat Clear Calc 109.7 Estimated GFR > 60 Random Glucose 95 Lactic Acid 0.5 Calcium 9.2 Total Bilirubin 0.7 Direct Bilirubin 0.4 AST 17 ALT 15 Alkaline Phosphatase 65 C-Reactive Protein 12.07 H Total Protein 6.9 Albumin 3.8 Urine Color Urine Appearance Urine pH Ur Specific [place] Urine Protein Urine Glucose (UA) Urine Ketones Urine Blood Urine Nitrite Ur Leukocyte Esterase Urine RBC Urine WBC Ur Squamous Epith Cells Urine Bacteria Urine Trichomonas Urine Test Urine Opiates Screen Urine Fentanyl Screen Ur Barbiturates Screen Ur Phencyclidine Scrn Ur Amphetamines Screen U Benzodiazepines Scrn Urine Cocaine Screen U Marijuana (THC) Screen COVID-19 (ALBERTINA) COVID-19 Clin Com 02/11/22 02/11/22 02/11/22 14:57 18:00 18:00 WBC RBC Hgb Hct MCV MCH MCHC RDW Plt Count MPV Immature Gran % (Auto) Neut % (Auto) Lymph % (Auto) [place] % (Auto) Eos % (Auto) Baso % (Auto) Lymph # (Auto) [place] # (Auto) Eos # (Auto) Baso # (Auto) Abs Immat Gran (auto) Absolute Neuts (auto) Absolute Nucleated RBC Nucleated RBC % (auto) Smear Tech's Comments Sodium Potassium Chloride Carbon Dioxide Anion Gap BUN Creatinine Estim Creat Clear Calc Estimated GFR Random Glucose Lactic Acid Calcium Total Bilirubin Direct Bilirubin AST ALT Alkaline Phosphatase C-Reactive Protein Total Protein Albumin Urine Color YELLOW Urine Appearance HAZY Urine pH 7.0 Ur Specific [place] <= 1.005 Urine Protein 1+ H Urine Glucose (UA) NEG Urine Ketones NEG Urine Blood 1+ H Urine Nitrite NEG Ur Leukocyte Esterase 3+ H Urine RBC 1-4 Urine WBC 10-14 H Ur Squamous Epith Cells 1+ Urine Bacteria 3+ Urine Trichomonas NOTED Urine Test NEGATIVE Urine Opiates Screen Urine Fentanyl Screen Ur Barbiturates Screen Ur Phencyclidine Scrn Ur Amphetamines Screen U Benzodiazepines Scrn Urine Cocaine Screen U Marijuana (THC) Screen COVID-19 (ALBERTINA) Negative COVID-19 Clin Com See Note 02/11/22 02/12/22 02/12/22 18:00 06:16 06:16 WBC 18.7 H RBC 4.27 Hgb 12.6 Hct 37.1 MCV 86.9 MCH 29.5 MCHC 34.0 RDW 14.6 Plt Count 239 MPV 10.5 Immature Gran % (Auto) 0.6 H Neut % (Auto) 80.6 H Lymph % (Auto) 7.7 L [place] % (Auto) 10.8 Eos % (Auto) 0.0 Baso % (Auto) 0.3 Lymph # (Auto) 1.4 [place] # (Auto) 2.0 H Eos # (Auto) 0.0 Baso # (Auto) 0.1 Abs Immat Gran (auto) 0.11 H Absolute Neuts (auto) 15.1 H Absolute Nucleated RBC 0.000 Nucleated RBC % (auto) 0.0 Smear Tech's Comments VERIFIED Sodium 138 Potassium 4.3 Chloride 105 Carbon Dioxide 16 L Anion Gap 21 H BUN 10 Creatinine 0.79 Estim Creat Clear Calc 106.8 Estimated GFR > 60 Random Glucose 114 Lactic Acid Calcium 9.3 Total Bilirubin Direct Bilirubin AST ALT Alkaline Phosphatase C-Reactive Protein Total Protein Albumin Urine Color Urine Appearance Urine pH Ur Specific [place] Urine Protein Urine Glucose (UA) Urine Ketones Urine Blood Urine Nitrite Ur Leukocyte Esterase Urine RBC Urine WBC Ur Squamous Epith Cells Urine Bacteria Urine Trichomonas Urine Test Urine Opiates Screen POSITIVE H Urine Fentanyl Screen POSITIVE H Ur Barbiturates Screen Not Detected Ur Phencyclidine Scrn Not Detected Ur Amphetamines Screen Not Detected U Benzodiazepines Scrn Not Detected Urine Cocaine Screen POSITIVE H U Marijuana (THC) Screen POSITIVE H COVID-19 (ALBERTINA) COVID-19 Clin Com Imaging Radiology Impressions: ITS Impressions Chest X-Ray 02/11/22 13:43 IMPRESSION: Unremarkable chest examination. Abdomen/Pelvis CT 02/11/22 21:13 IMPRESSION: 1. No acute abnormality the abdomen or pelvis. Normal kidneys ureter and bladder. 2. Degenerative changes of the spine. Chronic anterior wedge compression deformity of the T11 vertebrae unchanged since 06/30/2017. Slight compression of the superior and inferior endplates of the L4 vertebrae which appears to be chronic though new since prior study of 2017. Fleischner guidelines were followed. Medications Medications Current Medications Acetaminophen (Acetaminophen 325 Mg Tablet) 650 mg PO Q6H PRN PRN Reason: Pain, Mild (Pain Scale 1-3) Last Admin: 02/12/22 01:31 Dose: 650 mg Documented by: Clonidine HCl (Clonidine Hcl 0.1 Mg Tablet) 0.1 mg PO BID PRN; Protocol PRN Reason: anxiety/restlessness Enoxaparin Sodium (Enoxaparin Sodium 40 Mg/0.4 Ml Syringe) 40 mg SUBCUT Q24H [facility] Last Admin: 02/12/22 00:43 Dose: 40 mg Documented by: Hydromorphone HCl (Hydromorphone Hcl 1 Mg/Ml Syringe) 0.6 mg IVPUSH Q4H PRN; Protocol PRN Reason: Breakthrough Pain Dextrose/Sodium Chloride (D51/2ns) 1,000 mls @ 100 mls/hr IVCONT .Q10H [facility] Last Admin: 02/12/22 09:43 Dose: 100 mls/hr Documented by: Ceftriaxone Sodium 1 gm/ (Sodium Chloride) 50 mls @ 100 mls/hr IV Q24H [facility] Last Admin: 02/12/22 09:43 Dose: 100 mls/hr Documented by: Levetiracetam (Levetiracetam 500 Mg Tablet) 500 mg PO BID [facility] Last Admin: 02/12/22 09:42 Dose: 500 mg Documented by: Melatonin (Melatonin 3 Mg Tablet) 6 mg PO BEDTIME PRN PRN Reason: Insomnia Methadone HCl (Methadone Hcl 20 Mg/2 Ml Oral.Conc) 10 mg PO Q3H PRN PRN Reason: Opiate Withdrawal Ondansetron HCl (Ondansetron Hcl 4 Mg/2 Ml Vial) 4 mg IVPUSH Q8H PRN PRN Reason: Nausea and Vomiting Last Admin: 02/12/22 01:29 Dose: 4 mg Documented by: Pharmacy Consult (Consult Rx Perform Med Rec) 1 each MISCELLANE ONCE PRN PRN Reason: Consult order Senna (Sennosides 8.6 Mg Tablet) 17.2 mg PO BEDTIME PRN PRN Reason: Constipation Sodium Chloride (0.9 % Sodium Chloride Flush 3 Ml Syringe) 3 ml IVFLUSH QSHIFT JUDY Last Admin: 02/12/22 07:44 Dose: Not Given Documented by: Allergies Allergies Allergy/AdvReac Type Severity Reaction Status Date / Time bee pollen [BEE STINGS] Allergy Severe ANAPHYLAXIS Unverified 08/13/20 16:20 divalproex sodium Allergy Unknown ITCHY RASH Unverified 08/13/20 16:20 [From DEPAKOTE] kiwi Allergy Unknown anaphylaxis Unverified 05/02/17 00:00 sertraline [Zoloft] Allergy Unknown anaphylaxis Verified 07/19/16 00:00 tegaderm Allergy Unknown rash Unverified 05/02/17 00:00 kiwi AdvReac Unknown DIFFICULTY Unverified 08/13/20 16:20 [KIWI (ACTINIDIA CHINENSIS)] BREATHING TEGIDERM Allergy Mild HIVES Uncoded 08/13/20 16:20 bee sting Allergy Unknown anaphylaxis Uncoded 07/19/16 00:00 bees Allergy Unknown anaphylaxis Uncoded 05/02/17 00:00 depakote Allergy Unknown syncope Uncoded 05/02/17 00:00 From Zoloft Allergy Unknown ANAPHYLAXIS Uncoded 08/13/20 16:20 Zoloft Allergy Unknown Uncoded 05/02/17 00:00 Assessment & Plan Assessment & Plan (1) Opioid use disorder: Status: Acute Code(s): F11.90 - Opioid use, unspecified, uncomplicated Assessment and Plan: * 10mg methadone q 3 hours PRN --max 3 doses * at time of this note, patient has self initiated discharge and never actually had any methadone I spent ___30___ minutes with the patient and/or on the patient floor today, greater than?50% of which was spent counseling/coordinating care.
--- NOTE | 2022-02-12 11:54 | PC.NURSE ---
AMA paperwork signed, hospitalist spoke to pt before leaving. R EJ removed by this RN.
== END 2022-02-12 12:00 | disposition left against medical advice (07) | DRG 463 ==
LOC: HO.ED 20:48 → HO.EDOVER 21:39
PROVIDERS: Admitting Provider Hospitalist; Emergency Provider Emergency Medicine; Visit Provider Nurse Practitioner Acute Care
DX: N12 Tubulo-interstitial nephritis, not specified as acute or chronic (principal); F11.20 Opioid dependence, uncomplicated; G40.909 Epilepsy, unspecified, not intractable, without status epilepticus; Z20.822 Contact with and (suspected) exposure to COVID-19; Z79.899 Other long term (current) drug therapy
CPT/HCPCS: 36415; 71045; 74176; 80048; 80076; 80307; 81001; 81025; 83605; 85025; 86140; 87040; 87086; 87635; 96361; 96374; 99218; 99284; 99285; J0696; J1650; J1956; J2405

== ENCOUNTER 2024-10-29 23:06 | Emergency (ER) | payer SELFPAY ==
--- NOTE | ~2024-10-29 | CT_ITS ---
EXAMINATION: CT ABDOMEN AND PELVIS WITHOUT CONTRAST CLINICAL INFORMATION: Bilateral flank pain. COMPARISON: February 11, 2022 TECHNIQUE: Multidetector volumetric imaging was performed from the superior aspect of the liver through the pubic symphysis. Sagittal and coronal reformatted images were obtained on the technologist's workstation. This CT examination was performed using dose optimization techniques as appropriate, variously including the following: *Automated exposure control *Adjustment of mA and/or kV according to patient size (this includes techniques or standardized protocols for targeted exams where dose is matched to indication/reason for exam; i.e. extremities or head) *Use of iterative reconstruction technique DLP: 517 mGy-cm FINDINGS: LUNG BASES: The visualized lung bases are unremarkable. LIVER, GALLBLADDER, AND BILIARY TREE: The liver is normal in size, shape, and attenuation. No focal hepatic lesion or biliary ductal dilatation is present. The gallbladder is unremarkable with no evidence of radiopaque gallstones, gallbladder wall thickening, or obvious pericholecystic inflammatory changes. PANCREAS: Unremarkable. SPLEEN: Unremarkable. ADRENAL GLANDS: Unremarkable. KIDNEYS AND URETERS: The kidneys are normal in size, shape, and attenuation. There is inferior left perinephric stranding. Prominent left renal collecting system without definitive ureteral calculus. BLADDER: Unremarkable. GASTROINTESTINAL TRACT: There is retained stool. There are prominent fluid-filled small bowel loops within the pelvis. ABDOMINAL WALL: No significant hernia is appreciated. LYMPH NODES: Normal. VASCULAR: Unremarkable. PELVIC VISCERA: Unremarkable. OSSEOUS STRUCTURES: Chronic appearing compression deformity at L4 similar to prior. CT/CT abdomen pelvis wo IV con IMPRESSION: 1. Prominent left renal collecting system with inferior left perinephric stranding. No definitive ureteral calculus. This may be secondary to a recently passed stone versus ascending infection. 2. Prominent fluid-filled small bowel loops within the pelvis. This may represent enteritis. 3. Retained stool throughout the colon. Fleischner guidelines were followed. Electronically signed by: Lloyd Ghotra MD 10/30/2024 05:54 AM JASON
[2024-10-29 23:11] VITALS: BP 129/81; PULSE 103; RESP 16; TEMP 36.6; O2SAT 99; BMI 25.3
[2024-10-30 00:27] LABS: Basophils Absolute Auto 0.1 X10*3/uL (0.0-0.2); Basophils Percent Auto 0.4 % (0-2); Eosinophils Percent Auto 0.1 % (0-4); Hematocrit 45.1 % (37.0-47.0); Hemoglobin 15.2 g/dl (12.0-16.0); Imm Gran Abs Auto 0.05 X10*3/uL (0.00-0.03); Imm Gran Pct Auto 0.3 % (0.0-0.4); Lymphocytes Absolute Auto 1.8 X10*3/uL (1.2-4.9); Lymphocytes Percent Auto 10.6 % (20-40); MANUAL DIFF FLAG SCAN; Mean Corpuscular HGB Conc 33.7 g/dl (31.0-35.0); Mean Corpuscular Hemoglobin 30.6 pg (27.0-33.0); Mean Corpuscular Volume 90.7 fL (80.0-98.0); Mean Platelet Volume 8.7 fL (9.4-12.3); Monocytes Absolute Auto 2.1 X10*3/uL (0.1-1.2); Monocytes Percent Auto 12.4 % (2-11); Neutrophils Absolute Auto 12.9 x10*3/uL (2.0-8.3); Neutrophils Percent Auto 76.2 % (45-73); Platelet Count 259 X10*3/uL (160-400); Red Blood Count 4.97 X10*6/uL (4.20-5.50); Red Cell Distribution Width 13.4 % (11.0-16.0); SCAN SMEAR FLAG 1; White Blood Count 16.9 X10*3/uL (4.8-10.8)
[2024-10-30 00:42] LABS: Alanine Aminotransferase 11 U/L (0-31); Albumin Level 4.2 g/dL (3.5-5.0); Alkaline Phosphatase 63 U/L (39-117); Anion Gap 16 (12-20); Aspartate Amino Transferase 23 U/L (5-31); Bilirubin Total 0.8 mg/dL (0.0-1.0); Blood Urea Nitrogen 9 mg/dL (9-16); Calcium 9.3 mg/dL (8.4-10.2); Carbon Dioxide 21 mmol/L (22-29); Chloride 99 mmol/L (96-108); Creatinine Clr Calc Pharmacy 109.2; Estimated Glomerular Filt Rate > 60; Glucose Random 98 mg/dL (60-115); Potassium 3.9 mmol/L (3.3-5.1); Sodium 132 mmol/L (135-145); Total Protein 8.3 g/dL (6.5-8.0)
[2024-10-30 00:45] LABS: SLIDE REVIEW VERIFIED
[2024-10-30 01:08] LABS: Lipase 9 U/L (8-78)
--- NOTE | 2024-10-30 01:20 | ED_ITS ---
HPI - General Adult General Chief complaint: General Medical Stated complaint: kidney infection Time Seen by Provider: 10/30/24 01:20 Source: patient Mode of arrival: ambulatory Limitations: no limitations History of Present Illness ED Provider: Dr. Norman Lozada HPI narrative: 34-year-old female with a history of opiate use disorder, cocaine use disorder, seizures, hepatitis, who presents emergency department for evaluation of bilateral flank pain x2 days. She describes the pain is a sharp shooting pain with the left being greater than right. Pain is 8/10 at its worst. She had associated nausea and chills. She denied fever, cough, chest pain, shortness of breath, dyspnea on exertion, vomiting or diarrhea. She was noted dysuria but denied urinary frequency. Patient states she had a similar bilateral flank pain and was admitted to the hospital from 02/11/2022 until 02/12/2022. She left against medical advice. In reviewing the chart, CT scan of the abdomen pelvis did not reveal any acute abnormalities to explain her pain. Her microscopic evaluation of her urine revealed 10-14 WBCs, 1+ squamous cells 3+ bacteria. Patient's urine culture at that time was negative. Patient states that she smokes crack cocaine daily and smokes heroin daily. Related Data Home Medications ?Medication ?Instructions ?Recorded ?Confirmed levetiracetam 500 mg tablet 1 tab PO BID 02/11/22 02/11/22 Previous Rx's ?Medication ?Instructions ?Recorded cefuroxime axetil 500 mg tablet 500 mg PO BID #10 tabs 02/12/22 Allergies Allergy/AdvReac Type Severity Reaction Status Date / Time bee pollen [BEE STINGS] Allergy Severe Anaphylaxis Verified 10/29/24 23:13 transparent dressing Allergy Mild Hives Verified 10/29/24 23:13 [Tegaderm] divalproex sodium Allergy Unknown ITCHY RASH Verified 10/29/24 23:13 [From DEPAKOTE] sertraline [Zoloft] Allergy Unknown anaphylaxis Verified 10/29/24 23:13 kiwi AdvReac Unknown Difficulty Verified 10/29/24 23:13 [KIWI (ACTINIDIA CHINENSIS)] breathing, anaphylaxis Review of Systems 2 Review of Systems: Yes all other systems are reviewed and are negative [facility] Past Medical History [facility] Narrative: Social history: She does smoke cigarettes. She denies alcohol use. She was smokes both crack cocaine and heroin daily. Medical History Epilepsia Hepatitis Pyelonephritis Social History Social History Advance Directives: No Do you have a plan to hurt others: No Plan Physical Exam ED Vital Signs: Vital Signs - 24 hr 10/29/24 23:11 Temperature 97.9 F Pulse Rate 103 H Respiratory Rate 16 Blood Pressure 129/81 Pulse Oximetry 99 Oxygen Delivery Method Room Air BMI result Body Mass Index 25.3 Vital signs were normal Exam: General: Patient was asleep when I walk into the room, she did wake up but appeared to be somnolent and continued to fall back asleep in between questions. Head: Normocephalic, atraumatic EENT: PERRL, Lids normal, sclera normal, conjunctiva normal, nose normal , ears normal, throat without erythema or exudates Neck: Supple, no adenopathy Lung: breath sounds symmetric, no wheezing, rales or rhonchi Chest: symmetric movement, nontender Heart: regular rate and rhythm, normal S1, S2 no murmurs or rubs Abdomen: soft, non-tender, nondistended, normal bowel sounds Back: Bilateral CVA tenderness Extremities: no deformities, moves all extremities symmetrically Neuro: Somnolent, wakes up but falls asleep in between questions, normal speech, cranial nerves intact, moves all extremities symmetrically Psych: Pleasant, cooperative Medical Decision Making Medical Decision Making MDM Narrative: 34-year-old female with a history of opiate use disorder, cocaine use disorder, seizures, hepatitis, who presents emergency department for evaluation of bilateral, sharp/shooting flank pain, left greater than right x2 days. Patient had associated nausea, chills and dysuria. Her pain was 8/10. She had a similar presentation 02/11/2022 admitted for 1 day and left AMA. At that time her urine microscopic was positive however urine culture did not grow bacteria and her CT scan of the abdomen pelvis did not reveal a clear cause for her pain. Physical examination today revealed that she was somnolence but arousable, she had no abdominal tenderness but did have bilateral flank pain. Differential diagnosis: ?Includes but is not limited to bilateral pyelonephritis, bilateral ureteral stones, musculoskeletal pain, anemia, electrolyte abnormalities Following evaluation was ordered: CBC, CMP, UA, urine , drug screen urine, CT abdomen pelvis without IV contrast Patient was initially treated with the following: Toradol 60 mg IM Course: 01:48 My interpretation patient's laboratory evaluation is as follows: Elevated WBCs 71371. Sodium low 132. Bicarb low 21. BUN and creatinine were normal 9 and 0.72. LFTs were unremarkable. Lipase was normal. At the end of my shift, the patient's urinalysis and CT scan of the abdomen pelvis are pending. Patient was care was turned over to my colleague, Dr. Dhaval Franks. Admission/Observation Consideration of admission/observation: Escalation of care including admission/observation considered (Yes) Lab Data MDM Lab Attestation statement: I reviewed the patient's lab results. 10/30/24 00:22 10/30/24 00:22 Labs: Lab Results 10/30/24 Range/Units 00:22 WBC 16.9 H (4.8-10.8) X10*3/uL RBC 4.97 (4.20-5.50) X10*6/uL Hgb 15.2 D (12.0-16.0) g/dl Hct 45.1 D (37.0-47.0) % MCV 90.7 (80.0-98.0) fL MCH 30.6 (27.0-33.0) pg MCHC 33.7 (31.0-35.0) g/dl RDW 13.4 (11.0-16.0) % Plt Count 259 (160-400) X10*3/uL MPV 8.7 L (9.4-12.3) fL Immature Gran % (Auto) 0.3 (0.0-0.4) % Neut % (Auto) 76.2 H (45-73) % Lymph % (Auto) 10.6 L (20-40) % Eddy % (Auto) 12.4 H (2-11) % Eos % (Auto) 0.1 (0-4) % Baso % (Auto) 0.4 (0-2) % Lymph # (Auto) 1.8 (1.2-4.9) X10*3/uL Eddy # (Auto) 2.1 H (0.1-1.2) X10*3/uL Eos # (Auto) 0.0 (0.0-0.4) X10*3/uL Baso # (Auto) 0.1 (0.0-0.2) X10*3/uL Abs Immat Gran (auto) 0.05 H (0.00-0.03) X10*3/uL Absolute Neuts (auto) 12.9 H (2.0-8.3) x10*3/uL Absolute Nucleated RBC 0.000 (0.0-0.012) X10*3/uL Nucleated RBC % (auto) 0.0 (0.0-0.2) /100WBC Smear Tech's Comments VERIFIED Sodium 132 L (135-145) mmol/L Potassium 3.9 (3.3-5.1) mmol/L Chloride 99 (96-108) mmol/L Carbon Dioxide 21 L (22-29) mmol/L Anion Gap 16 (12-20) BUN 9 (9-16) mg/dL Creatinine 0.72 (0.5-1.4) mg/dL Estim Creat Clear Calc 109.2 Estimated GFR > 60 Random Glucose 98 (60-115) mg/dL Calcium 9.3 (8.4-10.2) mg/dL Total Bilirubin 0.8 (0.0-1.0) mg/dL AST 23 (5-31) U/L ALT 11 (0-31) U/L Alkaline Phosphatase 63 (39-117) U/L Total Protein 8.3 H (6.5-8.0) g/dL Albumin 4.2 (3.5-5.0) g/dL Lipase 9 (8-78) U/L External Record Review External record reviewed: Inpatient record Chronic Conditions Patient?s care impacted by: Other (Cocaine use disorder, heroin use disorder) Discharge Plan Discharge Clinical Impression: Bilateral flank pain, Opiate use, Cocaine use Patient Disposition: Still a Patient Prescriptions: No Action levetiracetam 500 mg tablet 1 tab PO BID cefuroxime axetil 500 mg tablet 500 mg PO BID Qty: 10 0RF Print Language: Bahamian
[2024-10-30] MEDS: Ketorolac Tromethamine 60 MG/2 ML VIAL IM (01:52)
[2024-10-30 02:36] LABS: HCG Quantitative < 2 mIU/mL
--- NOTE | 2024-10-30 02:44 | MHC.EDTECH ---
Patient said she not able to give urine sample at this time ,rn aware .
[2024-10-30 04:09] VITALS: BP 98/66; PULSE 76; RESP 16; TEMP 37; O2SAT 98
[2024-10-30 04:22] LABS: Appearance Urine Turbid; Color Urine Yellow; Glucose Urine UA Negative (Negative); Leukocyte Esterase Urine Large (3+) (Negative); Nitrite Urine Negative (Negative); PH 6.5 (5.0-9.0); Specific Gravity - Urine 1.015 (1.005-1.025); UMIC TRIGGER UACC YES; Urine Blood Trace (Negative); Urine Ketones Negative (Negative); Urine Protein 100 (2+) mg/dL (Neg-Trace)
[2024-10-30 04:24] LABS: UPreg QC Valid YES; Urine Pregnancy NEGATIVE (NEGATIVE)
[2024-10-30 04:36] LABS: Bacteria Urine 4+ (None Seen); Squamous Epithelial Cell Urine >20 /HPF (0-2); UACC Culture Trigger YES; WBC Urine >50 /HPF (0-5)
[2024-10-30 04:36] LABS: Amphetamine Screen Urine Not Detected (Not Detect); Barbiturates, Urine Not Detected (Not Detect); Benzodiazepines Screen Urine Not Detected (Not Detect); Buprenorphine Scr Not Detected (Not Detect); Cannabinoid Screen Urine POSITIVE (Not Detect); Cocaine Screen Urine POSITIVE (Not Detect); Fentanyl, urine POSITIVE (Not Detect); Methadone Screen, Urine Not Detected (Not Detect); Opiate Screen Urine POSITIVE (Not Detect); Oxycodone Screen Urine Not Detected (Not Detect); Phencyclidine Screen Urine Not Detected (Not Detect)
[2024-10-30 06:25] VITALS: BP 112/73; PULSE 79; RESP 16; TEMP 37.2; O2SAT 97
[2024-10-30] MEDS: levoFLOXacin 500 MG TABLET PO (06:50)
[2024-10-30 06:53] VITALS: BP 112/73; PULSE 79; RESP 16; TEMP 37.2; O2SAT 97
== END 2024-10-30 06:53 | disposition home or self-care (01) ==
PROVIDERS: Emergency Medicine Emergency Medical Services; Emergency Provider Internal Medicine
DX: R10.9 Unspecified abdominal pain (principal); F11.90 Opioid use, unspecified, uncomplicated; F14.90 Cocaine use, unspecified, uncomplicated; Z79.899 Other long term (current) drug therapy
CPT/HCPCS: 36415; 74176; 80053; 80307; 81001; 81025; 83690; 84702; 85025; 87086; 87088; 87186; 96372; 99284; J1885

== ENCOUNTER 2025-01-28 19:45 | Inpatient (IN) | payer OTHER, SELFPAY ==
[2025-01-28 20:13] VITALS: BP 135/85; PULSE 95; RESP 18; TEMP 37.1; O2SAT 98; BMI 27.6
--- NOTE | 2025-01-28 20:14 | ED.GENADULT ---
HPI - General Adult General Chief complaint: Psychiatric Symptoms Stated complaint: Psych per [facility] Time Seen by Provider: 01/28/25 20:33 Source: patient History of Present Illness ED Provider: Carol Rm NP HPI narrative: Patient is a 34-year-old female who presents emergency department requesting assistance with detox and also endorsing SI without a specific plan. She denies homicidal ideations. She denies hallucinations. States that she presented to [facility] requesting assistance but was referred to come to the emergency department for evaluation. Admits to using crack cocaine as well as heroin, has been trying to cut back. When asked, she states that she is not taking any medications including her seizure medications he has been off them for some time. Related Data Home Medications ?Medication ?Instructions ?Recorded ?Confirmed levetiracetam 500 mg tablet 1 tab PO BID 02/11/22 01/29/25 Allergies Allergy/AdvReac Type Severity Reaction Status Date / Time bee pollen [BEE STINGS] Allergy Severe Anaphylaxis Verified 01/28/25 20:13 transparent dressing Allergy Mild Hives Verified 01/28/25 20:13 [Tegaderm] divalproex sodium Allergy Unknown ITCHY RASH Verified 01/28/25 20:13 [From DEPAKOTE] sertraline [Zoloft] Allergy Unknown anaphylaxis Verified 01/28/25 20:13 kiwi AdvReac Unknown Difficulty Verified 01/28/25 20:13 [KIWI (ACTINIDIA CHINENSIS)] breathing, anaphylaxis Review of Systems Review of Systems: Yes all other systems are reviewed and are negative PMFSH Past Medical History Attestation statement: The following information was validated with the patient. Source: old records reviewed Medical History Opioid use disorder Epilepsia Hepatitis Pyelonephritis Social History Social History Household Members: Significant Other Housing: Apartment Do you presently have visiting nurse or other home services: No Unable to assess alcohol history related to: Unknown Patient Tobacco Use Status: Current everyday Tobacco user Tobacco use type: Cigarette Cigarette Packs Per Day: 0.5 Cigarettes Per Day: 10.0 Smoked in Last 30 Days: Yes e-Cigarette/Vaping Use: Currently Using Frequency of e-Cigarette/Vaping Use: occasionally Patient Interested in Nicotine Replacement: Yes Patient Given Instructions on How to Stop Smoking: Yes Date Education Initiated: 01/29/25 Second Hand Smoke Exposure: No Use of substances other than those prescribed or required for medical reasons: Yes Substance Use Type: Crack/Cocaine and Heroin Substance Use Frequency: Daily Last Used Substance: Just Prior to Admission Currently Displaying Signs/Symptoms of Drug Intoxication Withdrawal: No Any prior treatment program specific to substance use: Yes Have you been hit, kicked, punched, or otherwise hurt by someone within the past year? If so, by whom?: No Do you feel safe in your current relationship?: Yes Is there a partner from a previous relationship who is making you feel unsafe now?: No Are you made to feel afraid or neglected: No Advance Directives: No Advance Directives Information Provided: Yes Do you have thoughts of harming others: None Do you have a plan to hurt others: No Plan Recently lost weight without trying: No Nutrition Risks: No Nutritional Risk Patient : No : No Poor oral hygiene: No Physical Exam ED Vital Signs: Vital Signs - 24 hr 01/28/25 20:13 01/29/25 01:17 Temperature 98.7 F 97.8 F Pulse Rate 95 70 Respiratory Rate 18 16 Blood Pressure 135/85 109/71 Pulse Oximetry 98 98 Oxygen Delivery Method Room Air Room Air BMI result Body Mass Index 27.6 Appearance: Alert.?Oriented to person, place and time. No acute distress.?Normal affect. Eyes: Pupils equal, round and reactive to light.? ENT: Pharynx normal.?? Neck: Normal inspection.? Neck supple.?? CVS: Heart sounds normal. Normal heart rate and rhythm.? Pulses normal.?? Respiratory: No respiratory distress.? Lung sounds clear to auscultation bilaterally?? Abdomen: Soft and non-tender. Normoactive bowel sounds. Skin: Skin warm and dry.? Normal skin color.? Extremities: No lower extremity edema.? Neuro: Moves all extremities spontaneously. Sensation intact bilaterally. CN II-XII intact. No focal neuro deficits. Ambulates with normal steady gait. Course Course Course Narrative: This is an RME: Additional HPI, ROS, PE not included below will be deferred to primary provider. RME assessment and note performed by: Fadumo Kennedy PA-C This is a [id number] female who presents emergency department for help with detox. Reporting passive SI. brought back to the psych pod for further eval. Plan : Labs, UA, drug screen, care team consult. Reevaluation(s) Reevaluation #1: The care team evaluated the patient. Patient is willing to get inpatient level of care. Patient is on a Section 12, patient is leads that dual diagnosis inpatient bed. Patient agrees with plan Time: 22:59 Reevaluation #2: Patient remained on Section 12 psychiatric inpatient level of care no event reported overnight continue bed search Time: 07:03 Medications Administered Generic Name Dose Route Start Last Admin Trade Name Freq PRN Reason Stop Dose Admin Acetaminophen 650 mg 01/29/25 11:54 01/29/25 19:23 Acetaminophen 325 Mg Tablet PO 650 mg Q6H PRN Administration Headache/Pain, Scale 1-10 Clonidine HCl 0.1 mg 01/29/25 12:22 01/29/25 23:47 Clonidine Hcl 0.1 Mg Tablet PO 0.1 mg Q4H PRN Administration signs or symptoms of opioid withdrawal Protocol Hydroxyzine HCl 25 mg 01/29/25 11:54 01/30/25 01:41 Hydroxyzine Hcl 25 Mg Tablet PO 25 mg Q6H PRN Administration mild anxiety Ibuprofen 600 mg 01/29/25 12:23 01/29/25 14:05 Ibuprofen 600 Mg Tablet PO 600 mg Q6H PRN Administration aches Levetiracetam 500 mg 01/28/25 23:05 01/29/25 20:36 Levetiracetam 500 Mg Tablet PO 500 mg BID JUDY Administration Nicotine Polacrilex 2 mg 01/29/25 07:54 01/29/25 17:27 Nicotine Polacrilex 2 Mg Gum BUCCAL 2 mg Q1H PRN Administration Nicotine Cravings Ondansetron HCl 4 mg 01/29/25 12:23 01/29/25 12:28 Ondansetron Odt 4 Mg Tab.Rapdis TRANSLINGU 4 mg Q6H PRN Administration Nausea and Vomiting Quetiapine Fumarate 50 mg 01/29/25 14:07 01/30/25 01:41 Quetiapine Fumarate 50 Mg Tablet PO 50 mg Q4H PRN Administration severe anxiety Trazodone HCl 50 mg 01/29/25 11:54 01/30/25 01:41 Trazodone Hcl 50 Mg Tablet PO 50 mg BEDTIME MRX1 PRN Administration Insomnia Discontinued Medications Generic Name Dose Route Start Last Admin Trade Name Anuelq PRN Reason Stop Dose Admin Clonidine HCl 0.1 mg 01/29/25 07:53 01/29/25 08:01 Clonidine Hcl 0.1 Mg Tablet PO 01/29/25 07:54 0.1 mg ONCE ONE Administration Protocol Clonidine HCl 0.1 mg 01/29/25 20:44 01/29/25 20:54 Clonidine Hcl 0.1 Mg Tablet PO 01/29/25 20:45 0.1 mg ONCE ONE Administration Protocol Lorazepam 1 mg 01/29/25 07:54 01/29/25 08:01 Lorazepam 1 Mg Tablet PO 01/29/25 07:55 1 mg ONCE ONE Administration Nicotine Polacrilex 2 mg 01/29/25 07:44 01/29/25 07:51 Nicotine Polacrilex Lozenge 2 Mg Lozenge BUCCAL 2 mg Q1H PRN Administration Nicotine Cravings Medical Decision Making Medical Decision Making MDM Narrative: Patient is a 34-year-old female with past medical history of opioid use disorder, cocaine use disorder, seizures, hepatitis who presents emergency department with suicidal ideations and no plan and requesting assistance with detox as per HPI. Overall she is nontoxic in appearance. She offers no physical complaints in his physical examination is benign. Will obtain serum labs for medical clearance, initiating Norris treatment back on Keppra 500 mg b.i.d. as her previous dosing. Differential Diagnosis Differential Diagnoses: The differential diagnosis associated with the presentation includes (See narrative above and below for further detail) Admission/Observation Consideration of admission/observation: Escalation of care including admission/observation considered Patient is being observed in the Emergency Department for SI and assistance with detox Observation time was started at 21:00 on 01/28/2025.?The patient is currently stable and non-toxic appearing. Observation is being initiated in the Emergency Department to allow time to help differentiate if the patient's suicidal ideations is due to Substance Induced Mood Disorder and Anxiety versus Major Depressive Disorder, Bipolar Chey, Bipolar Depression, and Schizophrenia. The patient will receive frequent psychiatric assessments from the provider as well as from nursing staff. The patient will also be monitored for the need of PRN agitation medications such as Haldol, Ativan, and Benadryl. Consult Healthcare Provider Management of the patient was discussed with: Behavioral Health Provider (CARE team) Lab Data [facility] Lab Attestation statement: I reviewed the patient's lab results. CBC is without leukocytosis, has a normocytic anemia not meeting transfusion criteria, no thrombocytopenia. No electrolyte derangement. No DURAN. Unremarkable LFTs. HCG is negative. Toxicology positive for opiates, fentanyl, cocaine, marijuana. Ethyl alcohol level nondetectable. 01/28/25 21:10 01/28/25 21:10 Labs: Lab Results 01/28/25 01/28/25 Range/Units 21:10 21:11 WBC 8.1 (4.8-10.8) X10*3/uL RBC 3.81 L D (4.20-5.50) X10*6/uL Hgb 11.7 L D (12.0-16.0) g/dl Hct 34.4 L D (37.0-47.0) % MCV 90.3 (80.0-98.0) fL MCH 30.7 (27.0-33.0) pg MCHC 34.0 (31.0-35.0) g/dl RDW 13.7 (11.0-16.0) % Plt Count 264 (160-400) X10*3/uL MPV 9.0 L (9.4-12.3) fL Immature Gran % (Auto) 0.2 (0.0-0.4) % Neut % (Auto) 50.2 (45-73) % Lymph % (Auto) 37.3 (20-40) % Gray % (Auto) 9.0 (2-11) % Eos % (Auto) 2.7 (0-4) % Baso % (Auto) 0.6 (0-2) % Lymph # (Auto) 3.0 (1.2-4.9) X10*3/uL Gray # (Auto) 0.7 (0.1-1.2) X10*3/uL Eos # (Auto) 0.2 (0.0-0.4) X10*3/uL Baso # (Auto) 0.1 (0.0-0.2) X10*3/uL Abs Immat Gran (auto) 0.02 (0.00-0.03) X10*3/uL Absolute Neuts (auto) 4.1 (2.0-8.3) x10*3/uL Absolute Nucleated RBC 0.000 (0.0-0.012) X10*3/uL Nucleated RBC % (auto) 0.0 (0.0-0.2) /100WBC Sodium 141 (135-145) mmol/L Potassium 3.7 (3.3-5.1) mmol/L Chloride 105 (96-108) mmol/L Carbon Dioxide 27 (22-29) mmol/L Anion Gap 13 (12-20) BUN 16 (9-16) mg/dL Creatinine 0.66 (0.5-1.4) mg/dL Estim Creat Clear Calc 115.3 Estimated GFR > 60 Random Glucose 108 (60-115) mg/dL Calcium 8.8 (8.4-10.2) mg/dL Total Bilirubin 0.2 (0.0-1.0) mg/dL Direct Bilirubin < 0.2 (0.0-0.5) mg/dL AST 27 (5-31) U/L ALT 14 (0-31) U/L Alkaline Phosphatase 58 (39-117) U/L Total Protein 7.2 (6.5-8.0) g/dL Albumin 3.8 (3.5-5.0) g/dL Beta HCG, Quant < 2 mIU/mL Urine Color Yellow Urine Appearance Clear Urine pH 7.0 (5.0-9.0) Ur Specific [place] 1.020 (1.005-1.025) Urine Protein Negative (Neg-Trace) mg/dL Urine Glucose (UA) Negative (Negative) mg/dL Urine Ketones Negative (Negative) mg/dL Urine Blood Negative (Negative) Urine Nitrite Negative (Negative) Ur Leukocyte Esterase Negative (Negative) Urine Opiates Screen POSITIVE H (Not Detect) Ur Buprenorphine Scrn Not Detected (Not Detect) ng/mL Ur Oxycodone Screen Not Detected (Not Detect) ng/mL Urine Methadone Screen Not Detected (Not Detect) ng/mL Urine Fentanyl Screen POSITIVE H (Not Detect) Ur Barbiturates Screen Not Detected (Not Detect) Ur Phencyclidine Scrn Not Detected (Not Detect) Ur Amphetamines Screen Not Detected (Not Detect) U Benzodiazepines Scrn Not Detected (Not Detect) Urine Cocaine Screen POSITIVE H (Not Detect) U Marijuana (THC) Screen POSITIVE H (Not Detect) Ethyl Alcohol < 10 mg/dL External Record Review External record reviewed: Outpatient record Discharge Plan Discharge Clinical Impression: Suicidal ideation, Opioid use disorder, Cocaine use disorder Patient Disposition: Still a Patient Interventions: Admission Worksheet (ED) Last Done: 01/29/25 11:46 Discharge Date/Time: 01/29/25 11:47
--- NOTE | 2025-01-28 20:50 | PC.NURSE ---
patient states hasnt had home medications for at least two months, states did get medications regularly when in long-term 2y ago, states she has a seizure d/o for which she used to be on keppra either 500mg bid or 1000mg bid. doesnt state she has experiencedany seizure activity to her knowledge. states shes been using heroin weaned herself down to 2bags daily, pranay using cocaine. states in committed type relationship with someone whos not using drugs, and is excited about this. 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 states she has interest in suboxone as MAT. states she was prev on subutex in long-term for a period of time. states she didnt have indetified plan method or intent for SI, states she feels safe at this times and seem s to want help. calm and appreciative.
[2025-01-28 21:16] LABS: MANUAL DIFF FLAG NO
[2025-01-28 21:18] LABS: Basophils Absolute Auto 0.1 X10*3/uL (0.0-0.2); Basophils Percent Auto 0.6 % (0-2); Eosinophils Absolute Auto 0.2 X10*3/uL (0.0-0.4); Eosinophils Percent Auto 2.7 % (0-4); Hematocrit 34.4 % (37.0-47.0); Hemoglobin 11.7 g/dl (12.0-16.0); Imm Gran Abs Auto 0.02 X10*3/uL (0.00-0.03); Imm Gran Pct Auto 0.2 % (0.0-0.4); Lymphocytes Percent Auto 37.3 % (20-40); Mean Corpuscular Hemoglobin 30.7 pg (27.0-33.0); Mean Corpuscular Volume 90.3 fL (80.0-98.0); Monocytes Absolute Auto 0.7 X10*3/uL (0.1-1.2); Neutrophils Absolute Auto 4.1 x10*3/uL (2.0-8.3); Neutrophils Percent Auto 50.2 % (45-73); Platelet Count 264 X10*3/uL (160-400); Red Blood Count 3.81 X10*6/uL (4.20-5.50); Red Cell Distribution Width 13.7 % (11.0-16.0); White Blood Count 8.1 X10*3/uL (4.8-10.8)
[2025-01-28 21:30] LABS: Amphetamine Screen Urine Not Detected (Not Detect); Barbiturates, Urine Not Detected (Not Detect); Benzodiazepines Screen Urine Not Detected (Not Detect); Buprenorphine Scr Not Detected (Not Detect); Cannabinoid Screen Urine POSITIVE (Not Detect); Cocaine Screen Urine POSITIVE (Not Detect); Fentanyl, urine POSITIVE (Not Detect); Methadone Screen, Urine Not Detected (Not Detect); Opiate Screen Urine POSITIVE (Not Detect); Oxycodone Screen Urine Not Detected (Not Detect); Phencyclidine Screen Urine Not Detected (Not Detect)
[2025-01-28 21:32] LABS: Alanine Aminotransferase 14 U/L (0-31); Albumin Level 3.8 g/dL (3.5-5.0); Alkaline Phosphatase 58 U/L (39-117); Anion Gap 13 (12-20); Aspartate Amino Transferase 27 U/L (5-31); Bilirubin Direct < 0.2 mg/dL (0.0-0.5); Bilirubin Total 0.2 mg/dL (0.0-1.0); Blood Urea Nitrogen 16 mg/dL (9-16); Calcium 8.8 mg/dL (8.4-10.2); Carbon Dioxide 27 mmol/L (22-29); Chloride 105 mmol/L (96-108); Creatinine Clr Calc Pharmacy 115.3; Estimated Glomerular Filt Rate > 60; Ethanol < 10 mg/dL; Glucose Random 108 mg/dL (60-115); Potassium 3.7 mmol/L (3.3-5.1); Sodium 141 mmol/L (135-145); Total Protein 7.2 g/dL (6.5-8.0)
[2025-01-28 21:39] LABS: HCG Quantitative < 2 mIU/mL
[2025-01-29] VITALS (8 sets, daily range): BP systolic 109–140; BP diastolic 63–92; PULSE 69–75; RESP 16; TEMP 35.9–36.8; O2SAT 95–98
--- NOTE | 2025-01-29 | ECG_ITS ---
Test Reason : polysubstance Blood Pressure : */* mmHG Vent. Rate : 59 BPM Atrial Rate : 59 BPM P-R Int : 130 ms QRS Dur : 82 ms QT Int : 424 ms P-R-T Axes : 28 71 52 degrees QTcB Int : 419 ms Sinus bradycardia Otherwise normal ECG When compared with ECG of 01-Jul-2017 00:33, Vent. rate has decreased by [address] elevation now present in Inferior leads Referred By: Dieter Loyola Electronically Signed By: FAMILIA HOLDER MD
[2025-01-29] MEDS: Nicotine Polacrilex Lozenge 2 MG LOZENGE BUCCAL (07:51)
[2025-01-29] MEDS: levETIRAcetam 500 MG TABLET PO ×2 (07:51→20:36)
[2025-01-29] MEDS: cloNIDine HCL 0.1 MG TABLET PO ×5 (08:01→23:47)
[2025-01-29] MEDS: LORazepam 1 MG TABLET PO (08:01)
[2025-01-29 08:22] LABS: Appearance Urine Clear; Color Urine Yellow; Glucose Urine UA Negative (Negative); Leukocyte Esterase Urine Negative (Negative); Nitrite Urine Negative (Negative); Urine Blood Negative (Negative); Urine Ketones Negative (Negative); Urine Protein Negative (Neg-Trace)
--- NOTE | 2025-01-29 11:01 | PC.NURSE ---
Report to Padmini on M3
--- NOTE | 2025-01-29 11:45 | P.EN_ITS ---
Event Note Date of Service: 01/29/25 Event Note: RN reporting that patient requesting to start buprenorphine for OUD and withdrawal sx Chart reviewed and patient seen in area of ED room 5 Patient laying in bed, asleep, wakes to voice, but quickly falls back to sleep States that she has been uising 3 bags of fentanyl daily and last use was prior to presenting to ED When asked about withdrawal sx, she nodded yes, but unable to articulate what, as she woudl fall back to sleep She did not appear diaphoretic or restless when seen RN reporting that she had just received some comfort medications Plan: -patient should be in moderate withdrawal before inititating buprenorphine -if sx can be managed with comfort medications, that is helpful--longer period of time btwn last use and initiation of medication is better--shoudl be at lest 24 hours or more -when patient ready to start --at least 3 observable withdrawal signs/symptoms- administer 16mg buprenorphine Time Spent With Patient Time: Total time managing care of this patient today ___20_ minutes.
[2025-01-29] MEDS: Ondansetron ODT 4 MG TAB.RAPDIS TRANSLINGU (12:28)
[2025-01-29] MEDS: hydrOXYzine HCL 25 MG TABLET PO ×2 (12:28→18:38)
[2025-01-29] MEDS: Nicotine Polacrilex 2 MG GUM BUCCAL ×3 (12:28→17:27)
--- NOTE | 2025-01-29 12:55 | PC.NURSE ---
Pt already immunized for flu this season
--- NOTE | 2025-01-29 13:41 | PC.ADMIT ---
Marguerite is a 34-year-old female admitted from [facility] to M[facility] on a CV for treatment of unspecified depression, opioid use, cocaine use disorder. Tox screen positive for opiates, fentanyl, cocaine, THC. Last use of heroin and cocaine was 01/28/25. Pt is on a [employer]. Pt has medical hx of Epilepsy and hepatitis. Pt self-presented to [facility] secondary to experiencing SI with no plan. Pt reported she's been using drugs since the age of 7 and wants to get sober. Pt is interested in starting suboxone and she was prescribed it while she was incarcerated but otherwise has not been to a suboxone clinic. Upon arrival to pt was pleasant and cooperative.? Pt was compliant with skin check which revealed healed injection site scars on her arms and hands. Pt currently denied SI/HI/AH/VH but will reach out to staff if thoughts occur. Thought process linear and organized. Pt?s goal of admission is to stay sober and establish outpatient providers. Pt was on disability and has an appointment to get her benefits back on 02/03/25. Pt placed on 15 minute safety checks.
[2025-01-29] MEDS: Ibuprofen 600 MG TABLET PO (14:05)
[2025-01-29] MEDS: QUEtiapine Fumarate 50 MG TABLET PO ×2 (15:40→19:23)
[2025-01-29] MEDS: Acetaminophen 325 MG TABLET 650 MG PO (19:23)
[2025-01-29] MEDS: traZODone HCL 50 MG TABLET PO (20:36)
[2025-01-30] MEDS: traZODone HCL 50 MG TABLET PO ×2 (01:41→20:36)
[2025-01-30] MEDS: QUEtiapine Fumarate 50 MG TABLET PO ×3 (01:41→20:36)
[2025-01-30] MEDS: hydrOXYzine HCL 25 MG TABLET PO ×2 (01:41→16:17)
[2025-01-30 07:00] VITALS: BMI 27.0
[2025-01-30 07:59] VITALS: BP 105/59; PULSE 58; RESP 16; TEMP 36.6; O2SAT 97
[2025-01-30 08:00] VITALS: PULSE 66
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
[2025-01-30] MEDS: Buprenorphine/Naloxone 4/1 mg FILM 1 FILM SUBLINGUAL ×3 (10:49→20:37)
[2025-01-30] MEDS: levETIRAcetam 500 MG TABLET PO ×2 (10:49→20:36)
[2025-01-30] MEDS: Nicotine Polacrilex 2 MG GUM BUCCAL (14:35)
[2025-01-30 16:00] VITALS: PULSE 60
[2025-01-30 20:00] VITALS: BP 118/69; PULSE 63; RESP 16; TEMP 36.8; O2SAT 98
[2025-01-30 21:52] VITALS: PULSE 63
[2025-01-31 08:15] VITALS: BP 121/56; PULSE 60; RESP 16; TEMP 36.8; O2SAT 99
[2025-01-31] MEDS: Buprenorphine/Naloxone 4/1 mg FILM 1 FILM SUBLINGUAL (08:58)
[2025-01-31] MEDS: levETIRAcetam 500 MG TABLET PO ×2 (08:58→20:47)
[2025-01-31] MEDS: Nicotine Polacrilex 2 MG GUM BUCCAL (09:31)
[2025-01-31] MEDS: QUEtiapine Fumarate 50 MG TABLET PO ×3 (11:37→19:15)
[2025-01-31] MEDS: Buprenorphine/Naloxone 8/2 mg FILM 1 FILM SUBLINGUAL (13:10)
--- NOTE | 2025-01-31 14:46 | HO.PSYCHPN ---
Subjective Subjective Date of Service: 01/31/25 Reason For Visit: si Interim History: asking for discharge. informed monday will discharge. states she needs to be at court for 829 on monday. pt informed she will remain in hospital for ongoing safety and withdrawal monitoring. feels good on bupe 12 mg daily, dosing consolidated to morning. per staff, 3-day up 02/04. irritable re not getting suboxone earlier than 3 pm yesterday. slept through the night. Mental Status Exam Mental Status Exam Narrative: up and about the unit. adequately groomed, wearing own attire. spech nml amount, loudness, latency, prosody. thoughts linear and logical. affect constricted, normo-intense, non-labile. mood fine. denies SI/SIBI/HI/AVH. Diagnostics Vital Signs (24Hr): Vital Signs - 24 hr 01/30/25 20:00 01/31/25 08:15 Temperature 98.2 F 98.2 F Pulse Rate 63 60 Respiratory Rate 16 16 Blood Pressure 118/69 121/56 L Pulse Oximetry 98 99 Oxygen Delivery Method Room Air Room Air BMI result Body Mass Index 27.0 Labs 01/28/25 21:10 01/28/25 21:10 Medications Medications Current Medications Acetaminophen (Acetaminophen 325 Mg Tablet) 650 mg PO Q6H PRN PRN Reason: Headache/Pain, Scale 1-10 Last Admin: 01/29/25 19:23 Dose: 650 mg Al Hydroxide/Mg Hydroxide (Magnesium Hydrox/Alum Hydrox 30 Ml Oral.Susp) 30 ml PO Q6H PRN PRN Reason: Heartburn/Nausea Buprenorphine/Naloxone (Buprenorphine/Naloxone 12/3 Mg Film) 1 film SUBLINGUAL DAILY JUDY Clonidine HCl (Clonidine Hcl 0.1 Mg Tablet) 0.1 mg PO Q4H PRN; Protocol PRN Reason: signs or symptoms of opioid withdrawal Last Admin: 01/29/25 23:47 Dose: 0.1 mg Dicyclomine HCl (Dicyclomine Hcl 10 Mg Capsule) 10 mg PO QIDACHS PRN PRN Reason: stomach cramping Hydroxyzine HCl (Hydroxyzine Hcl 25 Mg Tablet) 25 mg PO Q6H PRN PRN Reason: mild anxiety Last Admin: 01/30/25 16:17 Dose: 25 mg Ibuprofen (Ibuprofen 600 Mg Tablet) 600 mg PO Q6H PRN PRN Reason: aches Last Admin: 01/29/25 14:05 Dose: 600 mg Levetiracetam (Levetiracetam 500 Mg Tablet) 500 mg PO BID JUDY Last Admin: 01/31/25 08:58 Dose: 500 mg Loperamide HCl (Loperamide Hcl 2 Mg Capsule) 2 mg PO Q4H PRN PRN Reason: diarrhea Magnesium Hydroxide (Milk Of Magnesia 30 Ml Oral.Susp) 30 ml PO DAILY PRN PRN Reason: Constipation Nicotine Polacrilex (Nicotine Polacrilex 2 Mg Gum) 4 mg BUCCAL Q1H PRN PRN Reason: Nicotine Cravings Ondansetron HCl (Ondansetron Odt 4 Mg Tab.Rapdis) 4 mg TRANSLINGU Q6H PRN PRN Reason: Nausea and Vomiting Last Admin: 01/29/25 12:28 Dose: 4 mg Quetiapine Fumarate (Quetiapine Fumarate 50 Mg Tablet) 50 mg PO Q4H PRN PRN Reason: severe anxiety Last Admin: 01/31/25 11:37 Dose: 50 mg Trazodone HCl (Trazodone Hcl 50 Mg Tablet) 50 mg PO BEDTIME MRX1 PRN PRN Reason: Insomnia Last Admin: 01/30/25 20:36 Dose: 50 mg Allergies Allergies Allergy/AdvReac Type Severity Reaction Status Date / Time bee pollen [BEE STINGS] Allergy Severe Anaphylaxis Verified 01/28/25 20:13 transparent dressing Allergy Mild Hives Verified 01/28/25 20:13 [Tegaderm] divalproex sodium Allergy Unknown ITCHY RASH Verified 01/28/25 20:13 [From DEPAKOTE] sertraline [Zoloft] Allergy Unknown anaphylaxis Verified 01/28/25 20:13 kiwi AdvReac Unknown Difficulty Verified 01/28/25 20:13 [KIWI (ACTINIDIA CHINENSIS)] breathing, anaphylaxis Assessment & Plan Assessment & Plan (1) Cocaine use disorder: Status: Acute Code(s): F14.10 - Cocaine abuse, uncomplicated (2) Opioid use disorder: Status: Acute Code(s): F11.90 - Opioid use, unspecified, uncomplicated (3) Substance induced mood disorder: Status: Acute Code(s): F19.94 - Other psychoactive substance use, unspecified with psychoactive substance-induced mood disorder (4) Homeless single person: Status: Acute Code(s): Z59.00 - Homelessness unspecified Plan 01/30: COWS. started suboxone 4 TID as pt was in moderate withdrawal. supportive care for cocaine and cannabis withdrawal. NRT for nicotine withdrawal. will discuss psych Dx and any further psychopharm once detox complete. per staff, pt signed 3-day notice 01/30. refer for outpt providers upon discharge. 01/31: suboxone 12 mg adequate; consolidate in a.m. asking for discharge, informed monday can discharge. Reason for continued inpatient stay Substantial Risk for: inability to function and rapid decompensation Time Spent With Patient Time: Total time managing care of this patient today __25__ minutes.
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
[2025-01-31] MEDS: Nicotine Polacrilex 2 MG GUM 4 MG BUCCAL ×2 (17:23→20:47)
[2025-01-31 20:00] VITALS: BP 133/74; PULSE 96; RESP 18; TEMP 36.9; O2SAT 98
[2025-01-31] MEDS: traZODone HCL 50 MG TABLET PO (20:47)
[2025-02-01] VITALS: PULSE 64
[2025-02-01 07:30] VITALS: BP 92/51; PULSE 65; RESP 12; TEMP 36.6; O2SAT 98
[2025-02-01 08:00] VITALS: PULSE 65
[2025-02-01] MEDS: Buprenorphine/Naloxone 12/3 mg FILM 1 FILM SUBLINGUAL (08:36)
[2025-02-01] MEDS: levETIRAcetam 500 MG TABLET PO ×2 (08:36→20:21)
--- NOTE | 2025-02-01 10:55 | PC.NURSE ---
Pt refused labs, provider aware
--- NOTE | 2025-02-01 11:16 | HO.PSYCHPN ---
Subjective Subjective Date of Service: 02/01/25 Reason For Visit: si Subjective Notes: Conditional Voluntary Interim History: Pt slept through the night. She reports she can't wait until Monday to be discharged. She denies SI/HI. No psychosis or delusions noted or reported. mostly in bed. Review of Systems Review of Systems Yes all other systems are reviewed and are negative Mental Status Exam Mental Status Exam Narrative: up and about the unit. adequately groomed, wearing own attire. spech nml amount, loudness, latency, prosody. thoughts linear and logical. affect constricted, normo-intense, non-labile. mood fine. denies SI/SIBI/HI/AVH. Diagnostics Vital Signs (24Hr): Vital Signs - 24 hr 01/31/25 20:00 02/01/25 07:30 Temperature 98.5 F 97.8 F Pulse Rate 96 65 Respiratory Rate 18 12 Blood Pressure 133/74 92/51 L Pulse Oximetry 98 98 Oxygen Delivery Method Room Air Room Air BMI result Body Mass Index 27.0 Labs 01/28/25 21:10 01/28/25 21:10 Medications Medications Current Medications Acetaminophen (Acetaminophen 325 Mg Tablet) 650 mg PO Q6H PRN PRN Reason: Headache/Pain, Scale 1-10 Last Admin: 01/29/25 19:23 Dose: 650 mg Al Hydroxide/Mg Hydroxide (Magnesium Hydrox/Alum Hydrox 30 Ml Oral.Susp) 30 ml PO Q6H PRN PRN Reason: Heartburn/Nausea Buprenorphine/Naloxone (Buprenorphine/Naloxone 12/3 Mg Film) 1 film SUBLINGUAL DAILY JUDY Last Admin: 02/01/25 08:36 Dose: 1 film Clonidine HCl (Clonidine Hcl 0.1 Mg Tablet) 0.1 mg PO Q4H PRN; Protocol PRN Reason: signs or symptoms of opioid withdrawal Last Admin: 01/29/25 23:47 Dose: 0.1 mg Dicyclomine HCl (Dicyclomine Hcl 10 Mg Capsule) 10 mg PO QIDACHS PRN PRN Reason: stomach cramping Hydroxyzine HCl (Hydroxyzine Hcl 25 Mg Tablet) 25 mg PO Q6H PRN PRN Reason: mild anxiety Last Admin: 01/30/25 16:17 Dose: 25 mg Ibuprofen (Ibuprofen 600 Mg Tablet) 600 mg PO Q6H PRN PRN Reason: aches Last Admin: 01/29/25 14:05 Dose: 600 mg Levetiracetam (Levetiracetam 500 Mg Tablet) 500 mg PO BID JUDY Last Admin: 02/01/25 08:36 Dose: 500 mg Loperamide HCl (Loperamide Hcl 2 Mg Capsule) 2 mg PO Q4H PRN PRN Reason: diarrhea Magnesium Hydroxide (Milk Of Magnesia 30 Ml Oral.Susp) 30 ml PO DAILY PRN PRN Reason: Constipation Nicotine (Nicotine 14 Mg Patch.Td24) 14 mg TRANSDERMA DAILY PRN PRN Reason: nicotine cravings Nicotine Polacrilex (Nicotine Polacrilex 2 Mg Gum) 4 mg BUCCAL Q1H PRN PRN Reason: Nicotine Cravings Last Admin: 01/31/25 20:47 Dose: 4 mg Ondansetron HCl (Ondansetron Odt 4 Mg Tab.Rapdis) 4 mg TRANSLINGU Q6H PRN PRN Reason: Nausea and Vomiting Last Admin: 01/29/25 12:28 Dose: 4 mg Quetiapine Fumarate (Quetiapine Fumarate 50 Mg Tablet) 50 mg PO Q4H PRN PRN Reason: severe anxiety Last Admin: 01/31/25 19:15 Dose: 50 mg Trazodone HCl (Trazodone Hcl 50 Mg Tablet) 50 mg PO BEDTIME MRX1 PRN PRN Reason: Insomnia Last Admin: 01/31/25 20:47 Dose: 50 mg Allergies Allergies Allergy/AdvReac Type Severity Reaction Status Date / Time bee pollen [BEE STINGS] Allergy Severe Anaphylaxis Verified 01/28/25 20:13 transparent dressing Allergy Mild Hives Verified 01/28/25 20:13 [Tegaderm] divalproex sodium Allergy Unknown ITCHY RASH Verified 01/28/25 20:13 [From DEPAKOTE] sertraline [Zoloft] Allergy Unknown anaphylaxis Verified 01/28/25 20:13 kiwi AdvReac Unknown Difficulty Verified 01/28/25 20:13 [KIWI (ACTINIDIA CHINENSIS)] breathing, anaphylaxis Assessment & Plan Assessment & Plan (1) Substance induced mood disorder: Status: Acute Code(s): F19.94 - Other psychoactive substance use, unspecified with psychoactive substance-induced mood disorder (2) Cocaine use disorder: Status: Acute Code(s): F14.10 - Cocaine abuse, uncomplicated (3) Opioid use disorder: Status: Acute Code(s): F11.90 - Opioid use, unspecified, uncomplicated (4) Homeless single person: Status: Acute Code(s): Z59.00 - Homelessness unspecified Plan 01/30: COWS. started suboxone 4 TID as pt was in moderate withdrawal. supportive care for cocaine and cannabis withdrawal. NRT for nicotine withdrawal. will discuss psych Dx and any further psychopharm once detox complete. per staff, pt signed 3-day notice 01/30. refer for outpt providers upon discharge. 01/31: suboxone 12 mg adequate; consolidate in a.m. asking for discharge, informed monday can discharge. 02/01 continue tx. Reason for continued inpatient stay Substantial Risk for: inability to function Time Spent With Patient Time: Total time managing care of this patient today ____ minutes.
[2025-02-01] MEDS: Nicotine 14 MG PATCH.TD24 TRANSDERMA (11:42)
[2025-02-01] MEDS: QUEtiapine Fumarate 50 MG TABLET PO ×2 (11:44→17:50)
[2025-02-01] MEDS: Nicotine Polacrilex 2 MG GUM 4 MG BUCCAL ×3 (12:18→17:35)
[2025-02-01 20:00] VITALS: BP 118/62; PULSE 75; RESP 18; TEMP 36.9; O2SAT 98
[2025-02-01] MEDS: traZODone HCL 50 MG TABLET PO (20:21)
[2025-02-01] MEDS: cloNIDine HCL 0.1 MG TABLET PO (20:21)
[2025-02-01 21:29] VITALS: PULSE 75
[2025-02-02] VITALS (7 sets, daily range): BP systolic 101–135; BP diastolic 59–73; PULSE 63–94; RESP 16; TEMP 36.9–37; O2SAT 98–99
[2025-02-02] MEDS: levETIRAcetam 500 MG TABLET PO ×2 (08:37→20:22)
[2025-02-02] MEDS: Buprenorphine/Naloxone 12/3 mg FILM 1 FILM SUBLINGUAL (08:37)
[2025-02-02] MEDS: cloNIDine HCL 0.1 MG TABLET PO ×4 (08:43→21:48)
[2025-02-02] MEDS: Nicotine 14 MG PATCH.TD24 TRANSDERMA (11:28)
--- NOTE | 2025-02-02 11:43 | HO.PSYCHPN ---
Subjective Subjective Date of Service: 02/02/25 Reason For Visit: si Subjective Notes: Conditional Voluntary Interim History: Pt slept through the night. She reports she can't wait until Monday to be discharged. She denies SI/HI. No psychosis or delusions noted or reported. mostly in bed. asked about increasing suboxone, informed to follow up OP. Review of Systems Review of Systems Yes all other systems are reviewed and are negative Mental Status Exam Mental Status Exam Narrative: up and about the unit. adequately groomed, wearing own attire. spech nml amount, loudness, latency, prosody. thoughts linear and logical. affect constricted, normo-intense, non-labile. mood fine. denies SI/SIBI/HI/AVH. Diagnostics Vital Signs (24Hr): Vital Signs - 24 hr 02/01/25 20:00 02/02/25 08:00 02/02/25 08:41 Temperature 98.4 F 98.6 F Pulse Rate 75 63 73 Respiratory Rate 18 Blood Pressure 118/62 101/59 L 119/67 Pulse Oximetry 98 99 Oxygen Delivery Method Room Air Room Air BMI result Body Mass Index 27.0 Labs 01/28/25 21:10 01/28/25 21:10 Medications Medications Current Medications Acetaminophen (Acetaminophen 325 Mg Tablet) 650 mg PO Q6H PRN PRN Reason: Headache/Pain, Scale 1-10 Last Admin: 01/29/25 19:23 Dose: 650 mg Al Hydroxide/Mg Hydroxide (Magnesium Hydrox/Alum Hydrox 30 Ml Oral.Susp) 30 ml PO Q6H PRN PRN Reason: Heartburn/Nausea Buprenorphine/Naloxone (Buprenorphine/Naloxone 12/3 Mg Film) 1 film SUBLINGUAL DAILY JUDY Last Admin: 02/02/25 08:37 Dose: 1 film Clonidine HCl (Clonidine Hcl 0.1 Mg Tablet) 0.1 mg PO Q4H PRN; Protocol PRN Reason: signs or symptoms of opioid withdrawal Last Admin: 02/02/25 08:43 Dose: 0.1 mg Dicyclomine HCl (Dicyclomine Hcl 10 Mg Capsule) 10 mg PO QIDACHS PRN PRN Reason: stomach cramping Hydroxyzine HCl (Hydroxyzine Hcl 25 Mg Tablet) 25 mg PO Q6H PRN PRN Reason: mild anxiety Last Admin: 01/30/25 16:17 Dose: 25 mg Ibuprofen (Ibuprofen 600 Mg Tablet) 600 mg PO Q6H PRN PRN Reason: aches Last Admin: 01/29/25 14:05 Dose: 600 mg Levetiracetam (Levetiracetam 500 Mg Tablet) 500 mg PO BID JUDY Last Admin: 02/02/25 08:37 Dose: 500 mg Loperamide HCl (Loperamide Hcl 2 Mg Capsule) 2 mg PO Q4H PRN PRN Reason: diarrhea Magnesium Hydroxide (Milk Of Magnesia 30 Ml Oral.Susp) 30 ml PO DAILY PRN PRN Reason: Constipation Nicotine (Nicotine 14 Mg Patch.Td24) 14 mg TRANSDERMA DAILY PRN PRN Reason: nicotine cravings Last Admin: 02/02/25 11:28 Dose: 14 mg Nicotine Polacrilex (Nicotine Polacrilex 2 Mg Gum) 4 mg BUCCAL Q1H PRN PRN Reason: Nicotine Cravings Last Admin: 02/01/25 17:35 Dose: 4 mg Ondansetron HCl (Ondansetron Odt 4 Mg Tab.Rapdis) 4 mg TRANSLINGU Q6H PRN PRN Reason: Nausea and Vomiting Last Admin: 01/29/25 12:28 Dose: 4 mg Quetiapine Fumarate (Quetiapine Fumarate 50 Mg Tablet) 50 mg PO Q4H PRN PRN Reason: severe anxiety Last Admin: 02/01/25 17:50 Dose: 50 mg Trazodone HCl (Trazodone Hcl 50 Mg Tablet) 50 mg PO BEDTIME MRX1 PRN PRN Reason: Insomnia Last Admin: 02/01/25 20:21 Dose: 50 mg Allergies Allergies Allergy/AdvReac Type Severity Reaction Status Date / Time bee pollen [BEE STINGS] Allergy Severe Anaphylaxis Verified 01/28/25 20:13 transparent dressing Allergy Mild Hives Verified 01/28/25 20:13 [Tegaderm] divalproex sodium Allergy Unknown ITCHY RASH Verified 01/28/25 20:13 [From DEPAKOTE] sertraline [Zoloft] Allergy Unknown anaphylaxis Verified 01/28/25 20:13 kiwi AdvReac Unknown Difficulty Verified 01/28/25 20:13 [KIWI (ACTINIDIA CHINENSIS)] breathing, anaphylaxis Assessment & Plan Assessment & Plan (1) Substance induced mood disorder: Status: Acute Code(s): F19.94 - Other psychoactive substance use, unspecified with psychoactive substance-induced mood disorder (2) Cocaine use disorder: Status: Acute Code(s): F14.10 - Cocaine abuse, uncomplicated (3) Opioid use disorder: Status: Acute Code(s): F11.90 - Opioid use, unspecified, uncomplicated (4) Homeless single person: Status: Acute Code(s): Z59.00 - Homelessness unspecified Plan 01/30: COWS. started suboxone 4 TID as pt was in moderate withdrawal. supportive care for cocaine and cannabis withdrawal. NRT for nicotine withdrawal. will discuss psych Dx and any further psychopharm once detox complete. per staff, pt signed 3-day notice 01/30. refer for outpt providers upon discharge. 01/31: suboxone 12 mg adequate; consolidate in a.m. asking for discharge, informed monday can discharge. 02/01 continue tx. 02/02 continue tx. dc tomorrow AM. Reason for continued inpatient stay Substantial Risk for: stable for discharge Time Spent With Patient Time: Total time managing care of this patient today ____ minutes.
[2025-02-02] MEDS: Nicotine Polacrilex 2 MG GUM 4 MG BUCCAL (12:44)
[2025-02-02] MEDS: QUEtiapine Fumarate 50 MG TABLET PO ×3 (13:17→21:48)
[2025-02-02] MEDS: hydrOXYzine HCL 25 MG TABLET PO (20:22)
[2025-02-02] MEDS: traZODone HCL 50 MG TABLET PO ×2 (20:23→21:48)
[2025-02-03] VITALS: PULSE 94
[2025-02-03] MEDS: Nicotine 14 MG PATCH.TD24 TRANSDERMA (06:49)
[2025-02-03] MEDS: levETIRAcetam 500 MG TABLET PO (06:49)
[2025-02-03] MEDS: Buprenorphine/Naloxone 12/3 mg FILM 1 FILM SUBLINGUAL (06:50)
== END 2025-02-03 07:00 | disposition home or self-care (01) | DRG 773 ==
LOC: HO.ED 23:02 → HO.PADLT16 01-29 11:16
PROVIDERS: Emergency Medicine; Physician Assistant Medical; Admitting Provider Psychiatry & Neurology Psychiatry; Emergency Provider Emergency Medicine Emergency Medical Services; Visit Provider Psychiatry & Neurology Psychiatry
DX: F19.94 Other psychoactive substance use, unspecified with psychoactive substance-induced mood disorder (principal); F11.23 Opioid dependence with withdrawal; R45.851 Suicidal ideations; F12.93 Cannabis use, unspecified with withdrawal; F14.13 Cocaine abuse, unspecified with withdrawal; F17.210 Nicotine dependence, cigarettes, uncomplicated; Z71.6 Tobacco abuse counseling; Z59.02 Unsheltered homelessness; Z62.810 Personal history of physical and sexual abuse in childhood; Z79.899 Other long term (current) drug therapy
CPT/HCPCS: 36415; 80048; 80076; 80307; 81003; 84702; 85025; 93005; 99285; S9485

== ENCOUNTER → 2025-01-29 08:14 | Outpatient (BNV) | payer OTHER, SELFPAY | PROVIDERS: Emergency Provider Emergency Medicine Emergency Medical Services; Visit Provider Internal Medicine Cardiovascular Disease | DX: R00.1 Bradycardia, unspecified (principal); F19.10 Other psychoactive substance abuse, uncomplicated | CPT/HCPCS: 93010 ==

== ENCOUNTER → 2025-01-29 10:38 | Outpatient (BNV) | payer OTHER, SELFPAY | PROVIDERS: Admitting Provider Psychiatry & Neurology Psychiatry; Emergency Provider Emergency Medicine Emergency Medical Services; Visit Provider Psychiatry & Neurology Psychiatry | DX: F14.10 Cocaine abuse, uncomplicated (principal); F11.90 Opioid use, unspecified, uncomplicated; F19.94 Other psychoactive substance use, unspecified with psychoactive substance-induced mood disorder; Z59.00 Homelessness unspecified | CPT/HCPCS: 99233 ==

== ENCOUNTER 2025-04-08 16:07 | Outpatient (REF) | payer OTHER, SELFPAY ==
--- OUTSIDE RECORDS SUMMARY | 2025-04-08 16:36 | XMS_ITS | Encounter Summary ---
Author Organization [employer] Address [address] [place] [address] Care Team Providers Care Chemical Sprayer Name Role Phone Natali Ortiz CNP Primary Care Provider [phone] [phone] Encounter Details Date Type Department Care Team (Latest Contact Info) Description 04/07/2025 2:30 PM EDT Office Visit [facility] [address] [place], [place] [phone] Lorena Bolaños MD [address] [place], [place] [phone] Opioid dependence, uncomplicated (CMS/HCC) (Primary Dx); Cocaine use Social History Tobacco Use Types Packs/Day Years Used Date Smoking Tobacco: Never Smokeless Tobacco: Never Alcohol Use Standard Drinks/Week Comments Never 0 (1 standard drink = 0.6 oz pur e alcohol) Depression Answer Date Recorded Patient Health Questionnaire-9 Score 12 04/02/2025 Patient Health Questionnaire-9 Score 12 04/02/2025 Last PHQ-9: Questionnaire Data Not on file 0 04/02/2025 Housing Stability Answer Date Recorded What is your housing situation today? I have kunal roy 03/19/[address] you li ve. Do you have problems with any of the following? None of the above 03/19/2025 Food Insecurity Answer Date Recorded Within the past 12 months, y ou worried that your food would run out before you got money to buy more: Sometimes True 2024 Within the past 12 months,th e food you bought just didn't last and you didn't have enough money to get more: Sometimes True 03/19/2025 Transportation Answer Date Recorded In the past 12 months, has l ack of transportation kept you from medical appts, meetings, work or from getting things needed for daily living? No 03/19/2025 Utilities Answer Date Recorded In the past 12 months, has t he electric, gas, oil or water company threatened to shut off services in your home? No 03/19/2025 Depression Answer Date Recorded Patient Health Questionnaire-2 Score 3 04/02/2025 Internet Access Answer Date Recorded Internet Access Q1 Yes 03/19/2025 Internet Access Q2 Not on file 03/19/2025 Comments No Sex and Gender Information Value Date Recorded Sex Assigned at Female 01/02/2023 12:57 PM EST Legal Sex Female 2:17 PM EST Gender Identity Female 01/02/2023 12:57 PM EST Sexual Orientation Straight 01/02/2023 12 :57 PM EST documented as of this encounter Progress Notes * Lorena Bolaños MD - 04/07/2025 2:30 PM EDT Patient here today for Opioid Dependence.Current Sublocade dose of 300 mg ,on a WEEKLY schedule. Patient reports taking medication as prescribed, no cravings or adverse effects. Pt has been in the program for 7 WEEKS. Induction date: 02/14/25.LFTs done-- Patient actively enrolled w/ [facility], Sees (--) MAPAT reviewed by ... Last PCP appt... BC Method... LAST-03/20/25 POS:BUP,GEE,THC NEG:FEN Subjective Patient ID: Marguerite Donnelly is a 35 y.o. female who presents for OBAT. Marguerite is being seen for OBAT services. She is on Sublocade and maintaining abstinence from opioids with no cravings or med side effects. She is due for injection #2 today. Topiramate is helpful for cocaine use, but she feels like it's not enough. Taking 50 mg daily. She saw her new PCP, Natali Ortiz, yesterday. Very happy. Got referrals for dental and neurology. TODAY'S VISIT 04/07/25 UTOX: POS BUP, GEE, THC Subjective Patient ID: Marguerite Donnelly is a 35 y.o. female who presents for OBAT followup. Marguerite is being seen for OBAT services. She is maintaining abstinence on Sublocade with no cravings or med side effects. She tells me that Topamax 100 mg BID is helping for cocaine cravings, but she is still using about 3 x weekly, usually in the mornings when she has cravings. She would like to increase the dose. Working with NEO Escobar on this issue. She is asking if there is anything that can be done about the track shepard on her arms. She never had them until she started injecting Xylazine. Plans to find a job and doesn't want to have to wear long sleeves all the time. RN Sherly Sapp educated patient about available arm covers. Review of Systems Psychiatric/Behavioral: Negative for dysphoric mood. The patient is not nervous/anxious. Objective Physical Exam Constitutional: Appearance: Normal appearance. Skin: General: Skin is warm and dry. Neurological: Mental Status: She is alert and oriented to person, place, and time. Assessment/Plan Diagnoses and all orders for this visit: Opioid dependence, uncomplicated ([facility]) Counseling provided RE: importance of multiple sources of support for achieving and maintaining recovery. Counseling RE: harm reduction measures, ie, not using alone, the use of clean needles/equipment, Narcan. Discussed strategies to use when confronted with situations that trigger use. Follow up next week for Sublocade injection. - POCT JUSTO-14 Urine Drug Screen Cocaine use - topiramate (Topamax) 50 MG tablet; Take 3 tablets (150 mg) by mouth 2 times daily. Dose change from 100 mg BID to 150 mg BID. She will work with her aircraft launch and recovery technician on this issue. This information has been disclosed to you from records protected by federal confidentiality rules (42 CFR Part 2). The federal rules prohibit you from making any further disclosure of information inthis record that identifies a patient as having or having had a substance use disorder either directly, by reference to publicly available information, or through verification of such identification by another person unless further disclosure is expressly permitted by the written consent of the individual whose information is being disclosed or as otherwise permitted by (see2.3.1). The federal rules restrict any use of the information to investigate or prosecute with regard to a crime any patient with a substance use disorder, except as provided at 2.12??(5) and 2.65. documented in this encounter Plan of Treatment Upcoming Encounters Date Type Department Care Team (Late st Contact Info) Description 04/17/2025 2:00 PM EDT Clinical Support [facility] [address] [place] [phone] Jeff Olvera, BARB [address] [place] [address] 05/01/2025 2:00 PM EDT Office Visit [facility] [address] [place] [address] Lorena Bolaños MD [address] [place] [address] 05/08/2025 2:30 PM EDT Office Visit [facility] [address] [place] [address] Tarka, Marguerite, OD [address] [place] [address] documented as of this encounter Procedures Procedure Name Priority Date/Time Associated Diagnosis Comments POCT JUSTO-14 URINE DRUG SCREEN Routine 04/07/2025 2:54 PM EDT Opioid dependence, uncomplicated ([facility]) documented in this encounter Results * POCT JUSTO-14 Urine Drug Screen (04/07/2025 2:54 PM EDT) THC Positive Cocaine Screen, Urine Positive Opiate Screen, Urine Negative Methamphetamine Screen Urine Negative Amphetamine Screen, Urine Negative Benzodiazepines Screen, Urine Negative Barbiturate Screen, Urine Negative Methadone Screen, Urine Negative Buprenophine Screen, Urine Positive TCA, Urine Negative MDMA Urine Negative ng/mL Oxycodone Screen, Urine Negative Phencyclidine (PCP), Urine Negative Fentanyl, Urine Negative Urine Urine specimen obtained by clean catch procedure / Unknown 04/07/2025 2:54 PM EDT Lorena Bolaños MD POINT OF CARE TEST ENTER/GENE T ORDERABLES Final Result documented in this encounter Visit Diagnoses Diagnosis Opioid dependence, uncomplicated (CMS/HCC)- Primary Cocaine use documented in this encounter Additional Health Concerns Assessment Noted Time PHQ-9 Depression Total Score: 12 025 7:49 AM EDT documented as of this encounter Care Teams Chemical Sprayer Relationship Specialty Start Date End Date Natali Ortiz CNP [address] [place] [phone] PCP - General Family Medicine 03/19/25 documented as of this encounter
--- OUTSIDE RECORDS SUMMARY | 2025-04-08 16:36 | XMS_ITS | Encounter Summary ---
Author Organization [employer] Address [address] [place] [address] Care Team Providers Care Floor Care Specialist Name Role Phone Natali Ortiz CNP Primary Care Provider [phone] Encounter Details Date Type Department Care Team (Latest Contact Info) Description 04/07/2025 Travel Social History Tobacco Use Types Packs/Day Years [...] PM EST documented as of this encounter Plan of Treatment Upcoming Encounters Date Type Department Care Team (Late st Contact Info) Description 04/17/2025 2:00 PM EDT Clinical Support [facility] [address] [place] [phone] Jeff Olvera, BARB [address] [place] [address] 05/01/2025 2:00 PM EDT Office Visit [facility] [address] [place] [address] Lorena Bolaños MD [address] [place] [address] 05/08/2025 2:30 PM EDT Office Visit [facility] [address] [place] [address] TarMarguerite vazquez, OD [address] [place] [address] documented as of this encounter Visit Diagnoses Not on filedocumented in this encounter Additional Health Concerns Assessment Noted Time PHQ-9 Depression Total Score: 12 025 7:49 AM EDT documented as of this encounter Care Teams Floor Care Specialist Relationship Specialty Start Date End Date Natali Ortiz CNP [address] [place] [address] PCP - General Family Medicine 03/19/25 documented as of this encounter
--- OUTSIDE RECORDS SUMMARY | 2025-04-08 16:36 | XMS_ITS | Clinical Summary ---
Author Organization [address] Address [address] [place] [phone] Phone Care Team Providers Care Divisional Merchandising Manager Name Role Phone Medhat Vinson MD Primary Care Provider Unavailab le Allergies Active Allergy Reactions Criticality Noted Date Comments Divalproex 05/21/2015 Metoclopramide Hcl Anaphylaxis High 05/21/2015 Silver Low 05/21/2015 Medications oxyCODONE-acetam inophen (PERCOCET) 5-325 mg per tablet Take 1 tablet by mouth every 6 (six) hours as needed. 5 tablet 0 05/21/2015 Active Social History Tobacco Use Types Packs/Day Years Used Date Smoking Tobacco: Never Assessed Comments Unknown Sex and Gender Information Value Date Recorded Sex Assigned at Not on file Legal Sex Female 11:41 AM EDT Gender Identity Not on file Sexual Orientation Not on file Last Filed Vital Signs Vital Sign Reading Time Taken Comments Blood Pressure 135/87 05/21/2015 8:57 PM EDT Pulse 88 05/21/2015 8:57 PM EDT Temperature 36.8 ??C (98.3 ??F) 05/21/2015 11:42 AM E DT Respiratory Rate 14 05/21/2015 8:57 PM EDT Oxygen Saturation 98% 05/21/2015 8:57 PM EDT Inhaled Oxygen Concentration - - Weight - - Height - - Body Mass Index - - Plan of Treatment Health Maintenance Due Date Last Done Comments HIV screening 02/17/2001 Hepatitis C screening 02/17/2006 Tetanus adult (Td q 10,TDAP once) 2008 Cervical cancer screening 02/17/2009 Covid-19 vaccine series () 07/28/2024 Influenza vaccine 07/28/2025 RSV Immunization (1 - 1-dose 75+ series) 02/17/2063 Meningococcal Vaccine Aged Out No cheryl clifton eligible based on patient's age to complete this topic Pneumococcal Vaccine (2 - 49 years) Aged Out No longer eligible based on patient's age to complete this topic Insurance MEDICAID MANAGED [facility] [place] [facility] Care Teams Divisional Merchandising Manager Relationship Specialty Start Date End Date Medhat Vinson MD PCP - General Internal Medicine 05/21/15
--- OUTSIDE RECORDS SUMMARY | 2025-04-08 16:36 | XMS_ITS | Encounter Summary ---
Author Organization [employer] Address [address] [place] [address] Care Team Providers Care Machine Greaser Name Role Phone Natali Ortiz CNP Primary Care Provider [phone] [phone] Reason for Visit * Reason Comments Med Refill Encounter Details Date Type Department Care Team ([facility] st Contact Info) Description 04/08/2025 Refill [facility] [address] [place], [place] [phone] Brenden Worthington MD [address] [place], [place] [phone] Opioid dependence, uncomplicated (CMS/HCC) Social History Tobacco Use Types Packs/Day Years [...] Description 04/17/2025 2:00 PM EDT Clinical Support [facility] [address] [place] [phone] Jeff Olvera RN [address] [place] [address] 05/01/2025 2:00 PM EDT Office Visit [facility] [address] [place] [phone] Lorena Bolaños MD [address] [place] [address] 05/08/2025 2:30 PM EDT Office Visit [facility] [address] [place] [address] Marguerite Rodriguez, OD [address] [place] [address] documented as of this encounter Visit Diagnoses Diagnosis Opioid dependence, uncomplicated (CMS/HCC) documented in this encounter Additional Health Concerns Assessment Noted Time PHQ-9 Depression Total Score: 12 025 7:49 AM EDT documented as of this encounter Care Teams Machine Greaser Relationship Specialty Start Date End Date Natali Ortiz CNP [address] [place] [phone] PCP - General Family Medicine 03/19/25 documented as of this encounter
--- OUTSIDE RECORDS SUMMARY | 2025-04-08 16:36 | XMS_ITS | Encounter Summary ---
Author Organization [employer] Address [address] [place] [address] Care Team Providers Care Carpet Mechanic Name Role Phone Natali Ortiz CNP Primary Care Provider [phone] Reason for Visit * Reason Onset Date Comments Error (VOID this visit) 04/07/2025 Encounter Details Date Type Department Care Team (Late st Contact Info) Description 04/07/2025 Telephone [facility] [address] [place] [address] Alexandra Monique [place] Error (VOID this visit) Social History Tobacco Use Types Packs/Day Years [...] Description 04/17/2025 2:00 PM EDT Clinical Support [facility] [address] [place] [phone] Jeff Olvera, BARB [address] [place] [address] 05/01/2025 2:00 PM EDT Office Visit [facility] [address] [place] [phone] Lorena Bolaños MD [address] [place] [address] 05/08/2025 2:30 PM EDT Office Visit [facility] [address] [place] [address] Marguerite Rodriguez, OD [address] [place] [address] documented as of this encounter Visit Diagnoses Not on filedocumented in this encounter Additional Health Concerns Assessment Noted Time PHQ-9 Depression Total Score: 12 025 7:49 AM EDT documented as of this encounter Care Teams Carpet Mechanic Relationship Specialty Start Date End Date Natali Ortiz CNP [address] [place] [address] PCP - General Family Medicine 03/19/25 documented as of this encounter
--- OUTSIDE RECORDS SUMMARY | 2025-04-08 16:36 | XMS_ITS | Clinical Summary ---
Author Organization [employer] Address [address] [place] [address] Care Team Providers Care Grinder Set Up Operator Universal Name Role Phone Natali Ortiz ASSISTANT PROFESSOR OF DIETETICS Primary Care Provider [phone] Allergies Active Allergy Reactions Criticality Noted Date Comments Bee Venom 02/12/2025 Valproic Acid 02/12/2025 Kiwi Extract 02/12/2025 Wound Dressings 02/12/2025 Sertraline 02/12/2025 Medications * This document contains information received from the source organization and may not represent a complete record from that organization. docusate sodium (Colace) 100 MG capsuleIndicatio ns:Opioid dependence, uncomplicated (CMS/HCC) 1-2 capsule PO at bedtime prn constipation (stool softener). 60 capsule 2 025 Active senna (Senokot) 8.6 MG tabletIndication s:Opioid dependence, uncomplicated (CMS/HCC) 1-2 tabs PO at bedtime prn constipation (natural intestinal stimulant) 60 tablet 2 025 Active buprenorphine ER (Sublocade) 300 mg/1.5mL injectionIndicat ions:Opioid dependence, uncomplicated (CMS/HCC) Inject 1.5 mL (1 each) under the skin every month to absorb continually. 1.5 mL 1 025 2024 Active etonogestrel-elu ting (Nexplanon) 68 mg contraceptive implant 1 each by Implant route 1 (one) time. Active levETIRAcetam (Keppra) 500 MG tabletIndication s:Nonintractable epilepsy without status epilepticus, unspecified epilepsy type (CMS/HCC) Take 1 tablet (500 mg) by mouth 2 times daily. 90 tablet 3 04/23/2 025 Active gabapentin (Neurontin) 100 MG capsuleIndicatio ns:Nonintractabl e epilepsy without status epilepticus, unspecified epilepsy type (CMS/HCC),Insomn ia due to medical condition Take 1 tablet at nighttime for sleep. 30 capsule Active budesonide-formo terol (Symbicort) 80-4.5 MCG/ACT inhalerIndicatio ns:Mild intermittent asthma in adult without complication Inhale 1 to 2 inhalations every 4 hours as needed for wheezing and shortness of breath. Rinse mouth with water after use to reduce aftertaste and incidence of candidiasis. Do not swallow. 1 each Active buprenorphine ER (Sublocade) 100 mg/0.5mL injectionIndicat ions:Opioid dependence, uncomplicated (CMS/HCC) Inject 0.5 mL (1 each) under the skin every month to absorb continually. 0.5 mL 5 025 2024 Active topiramate (Topamax) 50 MG tablet Take 3 tablets (150 mg) by mouth 2 times daily. Dose change from 100 mg BID to 150 mg BID 168 tablet 1 Active levETIRAcetam (Keppra) 500 MG tablet Take 1 tablet by mouth 2 times daily. 025 2024 Discontinued(R eorder (will not trigger notification to Pharmacy)) topiramate (Topamax) 25 MG tablet Take 1 tablet (25 mg) by mouth Once per day. 30 tablet 025 2024 Discontinued(D ose adjustment) topiramate (Topamax) 100 MG tablet Take 1 tablet (100 mg) by mouth 2 times daily. 60 tablet 1 025 2024 Discontinued(D ose adjustment) Hospital, Clinic, or Other Facility Administered Medication Ordered Dose Route Frequency Start Date End Date Status doxycycline (Vibramycin) capsule 100 mgIndications:STI (sexually transmitted infection) 100 mg PO 2 times daily 02/11/2025 Active buprenorphine ER (Sublocade) 300 mg/1.5mL injection 1 eachIndications:Opioid dependence, uncomplicated (CMS/HCC) 1 each SC Over 1 month 03/20/2025 03/20/2025 Ended Active Problems Problem Noted Date Diagnosed Date Bipolar disorder, in partial remission, most recent episode mixed 04/02/2025 Hepatitis C virus infection without hepatic coma 03/19/2025 Assessment & Plan (03/19/2025 11:14 AM EDT): Referred to [facility] for hepatitis c treatment, pt is already a pt at [facility]. Insomnia due to medical condition 03/19/2025 Assessment & Plan (03/19/2025 11:16 AM EDT): Advised sleep hygiene Pt has nocturnal seizures versus night terrors, to help with sleep we will trial low dose gabapentin at bedtime Advised smoking and cocaine cessation, pt declines quitting smoking at this time ut plans to continue on Topamax for cocaine cessation. Healthcare maintenance 03/19/2025 Assessment & Plan (03/19/2025 11:17 AM EDT): Vision: referral placed Dental: referral placed Cervical CA: UTD Labs: see orders IMMs: will offer at next visit due to time constraints today, pt due for Hep A, Tdap, Flu, COVID Irregular bleeding 03/19/2025 Assessment & Plan (03/19/2025 11:22 AM EDT): Provided education regarding nexplanon and irregular bleeding is common with this method. Advised expectant management for next few months. Pt agreeable with plan. Did let patient know that she may change contraceptive methods at any point. Pt will plan to continue on method and will RTC if irregular bleeding persists. I ordered a CBC today to r/o anemia. Seborrheic keratosis 03/19/2025 Assessment & Plan (03/19/2025 11:23 AM EDT): 2-3mm brown macule on right anterior lower leg. SK versus benign mole Referral placed to derm Asthma in adult without complication 03/19/2025 Assessment & Plan (03/19/2025 11:29 AM EDT): No daytime sx, no acute exacerbations, no nighttime waking. Pt on step 1 of asthma therapy which includes ICS-JASON as needed for sx. Sent Symbicort to use q4hrs prn for reliever only therapy d/t lack of symptoms, pt may use when exercising or when warmer weather occurs. F/u in 3 months Epilepsy 02/20/2025 Assessment & Plan (03/19/2025 11:13 AM EDT): Pt currently on Keppra, refills sent STAT neurology referral sent today Advised pt to not drive Pt has nocturnal seizures versus night terrors, to help with sleep we will trial low dose gabapentin at bedtime Cocaine use 02/20/2025 Opioid dependence, uncomplicated 02/14/2025 Assessment & Plan (02/20/2025 3:32 PM EDT): During IBH Consult Marguerite presenting with depressed mood, change in appetite or weight overeating, difficulty controlling worry, anxiety/worry associated to restlessness and/or feeling keyed-up/On edge , and Fear , Flashbacks, Intrusive trauma memories and thoughts, Nightmares/night terrors, Hypervigilance, Avoidance of trauma reminders/triggers, Increased startle response, Fear and distrust in relationships, and Fear of social judgement, and using in larger amounts or for longer than intended, unsuccessful attempt/s to cut down/stop use, continued use, even when it causes interpersonal problems, continued use even when hazardous or dangerous , continued use despite physical or psychological problem (potentially related or made worse by use) , withdrawal sxs , in regard to Cannabis, Opioids, and Stimulants ; for a period of 18+ mo, for most or all symptoms in the context of adjusting to recovery process, active addiction, stress relationship with parents, needs support with obtaining demographic documentation. PLAN: (check all that apply) Behavioral Health Integration Plan Internal Follow up with [facility], Cold handoff internal psychiatric provider Patient Self Plan Patient to utilize skills provided in intervention , Comply with medication , Patient to engage in OP BH therapy , and Patient to engage in Medication Management. GERTRUDIS (generalized anxiety disorder) 02/14/2025 PTSD (post-traumatic stress disorder) 02/14/2025 Cannabis use disorder 02/14/2025 Encounters * This document contains information received from the source organization and may not represent a complete record from that organization. Date Type Department Care Team Description 04/08/[address] [address] Brenden Worthington MD Opioid dependence, uncomplicated (CMS/HCC) 04/07/2025 2:30 PM EDT Office Visit [address] [address] Lorena Bolaños MD Opioid dependence, uncomplicated (CMS/HCC) (Primary Dx); Cocaine use 04/07/2025 Travel 04/07/[address] [address] Alexandra Monique [place] Error (VOID this visit) 03/25/2025 1:45 PM EDT Procedure Visit [address] [address] Melissa Trevino CNM Checking subdermal contraceptive (Primary Dx) 03/25/2025 Travel 03/21/[address] [address] Ivon Wild RN Opioid dependence, uncomplicated (CMS/HCC) (Primary Dx) 03/20/2025 1:00 PM EDT Office Visit [address] [address] Lorena Bolaños MD Opioid dependence, uncomplicated (CMS/HCC) (Primary Dx); Cocaine use 03/20/[address] [address] Ivon Wild RN 03/20/[address] [address] Ivon Wild RN 03/20/2025 Orders Only [address] [address] Sherly Sapp, fish hatchery assistant hepatitis C virus infection without hepatic coma 03/20/2025 Travel 03/19/2025 9:15 AM EDT Office Visit [address] [address] Natali Ortiz, ALBA Nonintractable epilepsy without status epilepticus, unspecified epilepsy type (CMS/HCC) (Primary Dx); Hepatitis C virus infection without hepatic coma, unspecified chronicity; Insomnia due to medical condition; Healthcare maintenance; Irregular bleeding; Seborrheic keratosis; Mild intermittent asthma in adult without complication 03/19/2025 Travel 03/13/2025 2:45 PM EDT Office Visit [facility] [address] [place] [address] Lorena Bolaños MD Opioid dependence, uncomplicated (CMS/HCC) (Primary Dx); Cocaine use 03/13/2025 Travel 03/11/2025 Patient Outreach [facility] [address] [place] [address] aNtali Ortiz CNP Pre-visit Planning ([facility] unable to reach) 03/06/2025 2:00 PM EDT Office Visit [facility] [address] [place] [address] Lorena Bolaños MD Opioid dependence, uncomplicated (CMS/HCC) (Primary Dx) 03/06/2025 Travel 03/06/[address] [address] Natali Ortiz CNP 02/27/2025 1:30 PM EDT Office Visit [facility] [address] [place] [address] Lorena Bolaños MD Opioid dependence, uncomplicated (CMS/HCC) (Primary Dx) 02/27/2025 Travel 02/26/2025 Population Health Risk Score [facility] () Department [address] [place] [phone] Provider, Population Health Generic 02/20/2025 2:15 PM EDT Office Visit [facility] [address] [place] [address] Lorena Bolaños MD Opioid dependence, uncomplicated (CMS/HCC) 02/20/[address] [address] Sherly Sapp RN 02/20/2025 Travel 02/14/2025 9:15 AM EDT Office Visit [facility] [address] [place] [address] Brenden Worthington MD Opioid dependence, uncomplicated (CMS/HCC) (Primary Dx); Cocaine use; Tobacco use 02/14/[address] [address] Lorena Bolaños MD 02/14/2025 Travel 02/13/2025 Orders Only [address] [address] Ivon Wild RN 02/12/2025 11:00 AM EDT Office Visit [address] [address] Sherly Sapp, BARB STI (sexually transmitted infection) (Primary Dx); Substance abuse ([facility]) 02/12/2025 10:00 AM EDT Office Visit [address] [address] Melissa Trevino CNM Nexplanon insertion (Primary Dx) 02/12/2025 Travel 02/11/2025 3:00 PM EDT Clinical Support [address] [address] Sherly Sapp, BARB Encounter for vaccination; STI (sexually transmitted infection) 02/11/2025 Patient Outreach [address] [address] González Dejesus [facility] 02/11/2025 Travel 01/28/2025 Patient Outreach [address] [address] González Dejesus [facility] 01/27/2025 Patient Outreach [address] [address] Oj Alcaraz [facility] 01/21/2025 Patient Outreach [address] [address] Bryon Batista [facility] from Last 3 Months Immunizations Name Administration Dates Next Due DTP 08/24/1989, 8,1988,1987 Hep B, Adolescent or Pediatric 06/15/2000,1999,10/25/1999 Hib (HbOC) 08/24/1989 Influenza injectable quadriv alent preservative free 09/07/2023 MMR 10/25/1999,05/26/1989 OPV, Trivalent 08/24/1989,1988,1988 Pfizer Covid-19 Vaccine 12+ 09/27/2023, 3,12/05/2022 Pfizer Covid-19 Vaccine 12+ Bivalent 05/12/2023 TD (adult), 2 Lf tetanus tox oid, preservative free, adsorbed 04/07/2000 Td (adult), 5 Lf tetanus tox oid, preservative free, adsorbed 04/12/2017 Social History Tobacco Use Types Packs/Day Years Used Date Smoking Tobacco: Never Smokeless Tobacco: Never Tobacco Cessation:Counseling Given: Not Answered Alcohol Use Standard Drinks/Week Comments Never 0 [...] Orientation Straight 01/02/2023 12 :57 PM EST Last Filed Vital Signs Vital Sign Reading Time Taken Comments Blood Pressure 131/87 03/25/2025 1:48 PM EDT Pulse 98 03/25/2025 1:48 PM EDT Temperature 36.6 ??C (97.8 ??F) 03/25/2025 1:48 PM ED T Respiratory Rate 16 03/25/2025 1:48 PM EDT Oxygen Saturation 98% 03/25/2025 1:48 PM EDT Inhaled Oxygen Concentration - - Weight 78.2 kg (172 lb 6.4 oz) 03/25/2025 1:48 P M EDT Height 165.1 cm (5' 5 ) 03/25/2025 1:48 PM EDT Body Mass Index 28.69 03/25/2025 1:48 PM EDT Plan of Treatment Upcoming Encounters Date Type Department Care Team (Late st Contact Info) Description 04/17/2025 2:00 PM EDT Clinical Support [facility] [address] [place] [address] Jeff Olvera, BARB [address] [place] [address] 05/01/2025 2:00 PM EDT Office Visit [facility] [address] [place] [address] Lorena Bolaños MD [address] [place] [address] 05/08/2025 2:30 PM EDT Office Visit [facility] [address] [place] [address] Marguerite Rodriguez, DEWAYNE [address] [place] [address] Health Maintenance Due Date Last Done Comments HIV Screening 1988 Hepatitis A Vaccines (1 of 2 - Risk 2-dose series) 02/17/2007 Pneumococcal Vaccine: Pediatrics (0 to 5 Years) and At-Risk Patients (6 to 49) Years) (1 of 2 - PCV) 02/17/2007 DTaP/Tdap/Td Vaccines (6 - Tdap) 04/13/2017 04/12/2017, 04/07/2000, 08/24/1989, Additional history exists COVID-19 Vaccine (5 - season) 2024 09/27/2023, 05/12/2023, 01/02/2023, Additional history exists Influenza Vaccine (#1) 2024 09/07/2023 Alcohol/Substance Use Screening 03/07/2026 03/07/2025 SDOH Screening 03/19/2026 03/19/2025 Family Planning (PISQ) 03/25/2026 03/25/2025 Tobacco Screening 03/25/2026 03/25/2025 Depression Screening 04/02/2026 04/02/2025, 04/02/20 Cervical Cancer Screening 09/12/2026 HPV/Cotest 09/12/2026 Pap Smear 09/12/2026 09/12/2023 Zoster Vaccines (1 of 2) 02/17/2038 RSV Patients and Patients Aged 60 years or older (1 - 1-dose 75+ series) 02/17/2063 HIB Vaccines Completed 08/24/1989 IPV Vaccines Discontinued 08/24/1989, 12/1987, 1988 Hepatitis B Vaccines Completed 06/15/2000, 02/07/2000, 10/25/1999 HPV Vaccines Aged Out No longer eligi ble based on patient's age to complete this topic Meningococcal Vaccine Aged Out No cheryl clifton eligible based on patient's age to complete this topic RSV under 20 months Aged Out No longe r eligible based on patient's age to complete this topic Rotavirus Vaccines Aged Out No longer eligible based on patient's age to complete this topic Procedures Procedure Name Priority Date/Time Associated Diagnosis Comments POCT JUSTO-14 URINE DRUG SCREEN Routine 04/07/2025 2:54 PM EDT Opioid dependence, uncomplicated ([facility]) POCT , URINE Routine 03/25/2025 2:00 PM EDT Checking subdermal contraceptive POCT JUSTO-14 URINE DRUG SCREEN Routine 03/20/2025 1:17 PM EDT Opioid dependence, uncomplicated (CMS/HCC) POCT JUSTO-14 URINE DRUG SCREEN Routine 03/13/2025 2:46 PM EDT Opioid dependence, uncomplicated (CMS/HCC) POCT JUSTO-14 URINE DRUG SCREEN Routine 03/06/2025 2:09 PM EDT Opioid dependence, uncomplicated (CMS/HCC) POCT JUSTO-14 URINE DRUG SCREEN Routine 02/27/2025 1:21 PM EDT Opioid dependence, uncomplicated (CMS/HCC) POCT JUSTO-14 URINE DRUG SCREEN Routine 02/20/2025 2:15 PM EDT Opioid dependence, uncomplicated (CMS/HCC) POCT JUSTO-14 URINE DRUG SCREEN Routine 02/14/2025 10:38 AM EDT Opioid dependence, uncomplicated (CMS/HCC) TIP STITCHER INSERTION/REMOVAL OF CONTRACEPTIVE CAPSULE Routine 02/12/2025 11:49 AM EDT Nexplanon insertion POCT , URINE Routine 02/12/2025 10:14 AM EDT Nexplanon insertion CHLAMYDIA/GONORRHEA VAGINAL SWAB ([place] [facility]) Routine 01/24/2025 CHLAMYDIA/GONORRHEA THROAT SWAB ([place] [facility]) Routine 01/24/2025 PAP SMEAR Routine 09/12/2023 12:00 AM EDT from Last 3 Months or Most Recently Relevant to Health Maintenance Results * POCT JUSTO-14 Urine Drug Screen (04/07/2025 2:54 PM EDT) Only the most recent of7 resultswithin the time period is included. THC Positive Cocaine Screen, Urine Positive Opiate [...] procedure / Unknown 04/07/2025 2:54 PM EDT us Lorena Bolaños MD POINT OF CARE TEST ENTER/GENE T ORDERABLES Final Result * POCT , urine manually resulted (03/25/2025 2:00 PM EDT) Only the most recent of2 resultswithin the time period is included. Preg Test, Ur Negative Negative, Indeterminate, None Detected, Invalid, Specimen unsatisfactory for evaluation, Weakly Positive QC Media Lot # [id number] Lot# Expiration Date [id number] Urine 03/25/2025 2:00 PM EDT Melissa Trevino CNM POINT OF CARE TEST ENTER/ EDIT ORDERABLES Final Result * Insertion/Removal of Contraceptive Capsule (02/12/2025 11:49 AM EDT) Narrative Melissa Trevino CNM - 02/12/2025 11:49 AM EDT Melissa Trevino CNM ? 02/12/2025 12:21 PM Insertion/Removal of Contraceptive Capsule Date/Time: 02/12/2025 11:49 AM Performed by: Mary Odell RN Authorized by: Melissa Trevino CNM ?? Confirmed correct patient, procedure, site, and patient consented: Yes ?? Participating Staff: ??Melissa Trevino CNM Participating Staff: ??Mary Odell RN [facility] student Consent: ??Consent obtained: ??Verbal and written ??Consent given by: ??Patient ??Procedural risks and benefits discussed: Yes ?Patient questions answered: yes ?Patient agrees, verbalizes understanding, and wants to proceed: yes ?Educational handouts given: yes ?Instructions and paperwork completed: yes ?? [place] Protocol: ??Patient states understanding of procedure being performed: yes ?Relevant documents present and verified: yes ?Test results available and properly labeled: yes ?Required blood products, implants, devices, and special equipment available: yes ?Site marked: yes ?? Indication: ??Indication: insertion of non-biodegradable drug delivery implant ?? Pre-procedure: ??Pre-procedure timeout performed: yes ?Prepped with: povidone-iodine ?Local anesthetic: Lidocaine 2% 2 ml. ??The site was cleaned and prepped in a sterile fashion: yes ?? Procedure: ??Procedure: ??Insertion ??Left/right: ??Left ??Preloaded contraceptive capsule trocar was placed subdermally: yes ?Visualization of implant was obtained: yes ?Contraceptive capsule was inserted and trocar removed: yes ?Visualization of notch in stylet and palpation of device: yes ?Palpation confirms placement by provider and patient: yes ?Site was closed with steri-strips and pressure bandage applied: yes ?? Result [facility] Melissa Trevino CNM IN CLINIC/BEDSIDE ORDERAB LES Final Result * (ABNORMAL) Chlamydia/Gonorrhea Vaginal Swab ([place] [facility]) (01/24/2025) Chlamydia Vaginal Swab Positive(A) Negative, Indeterminate, None Detected, Invalid, Specimen unsatisfactory for evaluation, Weakly Positive Gonorrhea Vaginal Swab Negative Negative, Indeterminate, None Detected, Invalid, Specimen unsatisfactory for evaluation, Weakly Positive Swab Vaginal structure / Unknown 01/24/2025 Result [facility] Historical Provider LAB MICROBIOLOGY - GENERA L ORDERABLES Final Result * Chlamydia/Gonorrhea Throat Swab ([place] [facility]) (01/24/2025) Chlamydia Throat Swab Negative Gonorrhea Throat Swab Negative Swab 01/24/2025 Result [facility] Historical Provider MD LAST MICROBIOLOGY - GENERA L ORDERABLES Final Result * Pap Smear (09/12/2023 12:00 AM EDT) Swab Result [facility] Historical Provider LAB CYTOLOGY ORDERABLES F inal Result [facility] [address] [place], [place] [id number] from Last 3 Months or Most Recently Relevant to Health Maintenance Insurance [facility] STANDARD Care Teams Grinder Set Up Operator Universal Relationship Specialty Start Date End Date Natali Ortiz CNP [address] [place] [address] [phone] PCP - General Family Medicine 03/19/25
[2025-04-08 18:04] LABS: MANUAL DIFF FLAG NO
[2025-04-08 18:12] LABS: Basophils Percent Auto 0.6 % (0-2); Eosinophils Absolute Auto 0.2 X10*3/uL (0.0-0.4); Hematocrit 39.7 % (37.0-47.0); Hemoglobin 13.5 g/dl (12.0-16.0); Imm Gran Abs Auto 0.01 X10*3/uL (0.00-0.03); Imm Gran Pct Auto 0.2 % (0.0-0.4); Lymphocytes Absolute Auto 2.1 X10*3/uL (1.2-4.9); Lymphocytes Percent Auto 32.9 % (20-40); Mean Corpuscular Hemoglobin 31.2 pg (27.0-33.0); Mean Corpuscular Volume 91.7 fL (80.0-98.0); Monocytes Absolute Auto 0.4 X10*3/uL (0.1-1.2); Monocytes Percent Auto 5.8 % (2-11); Neutrophils Absolute Auto 3.6 x10*3/uL (2.0-8.3); Neutrophils Percent Auto 57.5 % (45-73); Platelet Count 255 X10*3/uL (160-400); Red Blood Count 4.33 X10*6/uL (4.20-5.50); White Blood Count 6.3 X10*3/uL (4.8-10.8)
[2025-04-08 18:15] LABS: INTERNATIONAL NORM RATIO 0.9 (0.9-1.1); Prothrombin Time 10.8 SEC (10.9-12.4)
[2025-04-08 18:31] LABS: Estimated Average Glucose 100 mg/dL; Hemoglobin A1C 113.7116 umol/L; Hemoglobin A1c % 5.1 % (<6.0); Total Hemoglobin (HGBA1C) 3538.9357 umol/L
[2025-04-08 18:34] LABS: Alanine Aminotransferase 21 U/L (0-31); Albumin Level 4.6 g/dL (3.5-5.0); Alkaline Phosphatase 57 U/L (39-117); Anion Gap 14 (12-20); Aspartate Amino Transferase 28 U/L (5-31); Bilirubin Total 0.3 mg/dL (0.0-1.0); Blood Urea Nitrogen 12 mg/dL (9-16); Calcium 9.2 mg/dL (8.4-10.2); Carbon Dioxide 19 mmol/L (22-29); Chloride 110 mmol/L (96-108); Cholesterol 149 mg/dL (<200); Estimated Glomerular Filt Rate > 60; Glucose Random 104 mg/dL (60-115); HDL Cholesterol 60 mg/dL (>40); LDL Cholesterol Calculated 59 mg/dL (<100); Potassium 3.6 mmol/L (3.3-5.1); Sodium 139 mmol/L (135-145); Triglycerides 153 mg/dL (<150)
[2025-04-09 08:33] LABS: Hepatitis A Antibody IgG REACTIVE (Nonreactive); ~Hepatitis A Antibody IgG 1.28 S/CO (0.00-0.99)
[2025-04-09 08:40] LABS: HBS Num1 36.84 mIU/mL (0-7.99); HBsAGNum1 0.44 S/CO (0.00-0.99); Hepatitis B Surface Antigen Negative (Negative); ~Hepatitis B Surface Antibody REACTIVE (Nonreactive)
[2025-04-09 21:38] LABS: HCV Log PCR <1.18 NOT DETECTED Log IU/mL (NOT DETECTED); HepC Viral Load <15 NOT DETECTED IU/mL (NOT DETECTED)
[2025-04-10 13:13] LABS: HIV RNA PCR Qn Copies NOT DETECTED copies/mL (NOT DETECTED); HIV RNA PCR Qn Log Copies NOT DETECTED (NOT DETECTED)
[2025-04-13 19:59] LABS: Hepatitis C Genotype Not Detected
[2025-04-15 15:19] LABS: FIB-ALT 14 U/L (6-29); FIB-Alpha-2-Macroglobulin 247 mg/dL (106-279); FIB-Apolipoprotein A1 190 mg/dL (101-198); FIB-GGT 9 U/L (3-50); FIB-Haptoglobin 129 mg/dL (43-212); FIB-Total Bilirubin 0.4 mg/dL (0.2-1.2); Liver Fibrosis Score 0.06; Liver Fibrosis Stage F0; Nec Inflam Act Grade A0; Nec Inflam Act Score 0.03; Reference ID 5494523
== END 2025-04-08 16:08 | disposition home or self-care (01) ==
LOC: HO.HHCL 16:07
PROVIDERS: Visit Provider Family Medicine
DX: Z00.00 Encounter for general adult medical examination without abnormal findings (principal); B17.10 Acute hepatitis C without hepatic coma; N92.6 Irregular menstruation, unspecified
CPT/HCPCS: 36415; 80053; 80061; 81596; 83036; 85025; 85610; 86706; 86708; 87340; 87522; 87536; 87902

== ENCOUNTER 2025-04-28 08:27 | Outpatient (REF) | payer OTHER, SELFPAY ==
--- OUTSIDE RECORDS SUMMARY | 2025-04-28 08:39 | XMS_ITS | Clinical Summary ---
Author Organization [address] Address [address] [place] [phone] Phone Care Team Providers Care Second Hand Name Role Phone Medhat Vinson MD Primary [...] to complete this topic Insurance [place]ICAID [place]NAG[place] [facility] [place] [facility] [place] MANAGED [facility] [place] [facility] [place] [place] [facility] [place] MANA[place] [facility] [place] [facility] Care Teams Second Hand Relationship Specialty Start Date End Date Medhat Vinson MD PCP - General Internal Medicine 05/21/15
[2025-04-29 11:19] LABS: RPR Rapid Plasma Reagin NON-REACTIVE (NON-REACTIVE)
[2025-04-30 22:23] LABS: TS Negative Control Passed; TS Panel A 0; TS Panel B 19; TS Positive Control Passed; TSpotTB Positive (Negative)
== END 2025-04-28 08:28 | disposition home or self-care (01) ==
LOC: HO.HHCL 08:27
PROVIDERS: Visit Provider Emergency Medicine
DX: F11.20 Opioid dependence, uncomplicated (principal)
CPT/HCPCS: 36415; 86481; 86592

== ENCOUNTER 2025-04-29 08:34 | Outpatient (REF) | payer MEDICAID, SELFPAY ==
--- OUTSIDE RECORDS SUMMARY | 2025-04-29 08:59 | XMS_ITS | Encounter Summary ---
Author Organization [employer] Address [address] [place] [address] Care Team Providers Care Casino Floorperson Name Role Phone Natali Ortiz CNP Primary Care Provider [phone] Encounter Details Date Type Department Care Team (Latest Contact Info) Description 04/28/2025 Travel Social History Tobacco Use Types Packs/Day [...] Care Team (Late st Contact Info) Description 04/29/2025 9:00 AM EDT Office Visit [facility] [address] [place] [phone] Arrived 04/30/2025 10:00 AM EDT Office Visit [facility] [address] [place] [phone] Melissa Trevino CNM [address] [place] [address] 05/01/2025 2:00 PM EDT Office Visit [facility] [address] [place] [address] Lorena Bolaños MD [address] [place] [address] 05/08/2025 2:30 PM EDT Office Visit [facility] [address] [place] [address] TarkaMarguerite, OD [address] [place] [address] 05/22/2025 3:30 PM EDT Office Visit [facility] [address] [place] [address] Lorena Bolaños MD [address] [place] [address] documented as of this encounter Visit Diagnoses Not on filedocumented in this encounter Additional Health Concerns Assessment Noted Time PHQ-9 Depression Total Score: 12 025 7:49 AM EDT documented as of this encounter Care Teams Casino Floorperson Relationship Specialty Start Date End Date Natali Ortiz CNP [address] [place] [id number] PCP - General Family Medicine 03/19/25 documented as of this encounter
[2025-05-01 04:34] LABS: HBS Num1 28.96 mIU/mL (0-7.99); HBc Num1 0.18 S/CO (0.00-0.79); ~Hepatitis B Surface Antibody REACTIVE (Nonreactive)
[2025-05-01 04:35] LABS: HBsAGNum1 0.38 S/CO (0.00-0.99); HIV AB/AG Nonreactive (Nonreactive); HIV Num 1 0.06 S/CO (0.00-0.99); Hepatitis B Core Antibody Nonreactive (Nonreactive); Hepatitis B Surface Antigen Negative (Negative); ~HepC Num1 14.92 S/CO (0.00-0.79); ~Hepatitis C Antibody Reactive (Nonreactive)
[2025-05-02 05:24] LABS: Hepatitis A Antibody IgG Nonreactive (Nonreactive); ~Hepatitis A Antibody IgG 0.68 S/CO (0.00-0.99)
[2025-05-02 22:08] LABS: HIV RNA PCR Qn Copies Not Detected Copies/mL; HIV RNA PCR Qn Log Copies Not Detected Log cps/mL
[2025-05-05 14:18] LABS: HCV Log PCR <1.18 NOT DETECTED Log IU/mL (NOT DETECTED); HepC Viral Load <15 NOT DETECTED IU/mL (NOT DETECTED)
== END 2025-04-29 08:35 | disposition home or self-care (01) ==
LOC: HO.HHCL 08:34
PROVIDERS: Family Medicine; Visit Provider Emergency Medicine
DX: F11.20 Opioid dependence, uncomplicated (principal); F19.10 Other psychoactive substance abuse, uncomplicated
CPT/HCPCS: 36415; 86704; 86706; 86708; 86803; 87340; 87389; 87522; 87536; 87900

== ENCOUNTER 2025-05-02 08:49 | Outpatient (REF) | payer OTHER, SELFPAY ==
--- NOTE | ~2025-05-02 | XR_ITS ---
EXAMINATION: XR CHEST 2 VIEWS HISTORY: positive t-spot COMPARISON: Comparison is made with the prior examination dated 02/11/2022. FINDINGS: PA and lateral views of the chest are submitted. The lungs are expanded and clear. There is no pleural effusion, pneumothorax, or pulmonary vascular congestion. The heart is normal in size. The bones are intact. XR/XR chest 2V IMPRESSION: No acute cardiopulmonary abnormality. Electronically signed by: Otoniel Moore MD 05/02/2025 09:48 AM EDT
--- OUTSIDE RECORDS SUMMARY | 2025-05-02 09:03 | XMS_ITS | Encounter Summary ---
Author Organization [employer] Address [address] [place] [address] Care Team Providers Care Special Warfare Boat Operator Name Role Phone Luis Ortizmyreece ALBA Primary Care Provider [phone] Encounter Details Date Type Department Care Team (Late st Contact Info) Description 05/01/2025 Telephone [facility] [address] [place], [place] [id number] Natali Ortiz CNP [address] [place] [address] Social History Tobacco Use Types Packs/Day Years [...] PM EST documented as of this encounter Miscellaneous Notes * Telephone Encounter - Jeff Olvera RN - 05/01/2025 4:14 PM EDT Pt seen by Dr Bolaños today. CXR ordered and referral to TB clinic placed. * Telephone Encounter - Jamila Clayton RN - 05/01/2025 2:52 PM EDT Incoming call from [facility] lab calling to inform of positive T-Spot results for pt. Please f/u with [facility]CP[facility] next steps. documented in this encounter Plan of Treatment Upcoming Encounters Date Type Department Care Team (Late st Contact Info) Description 05/08/2025 2:30 PM EDT Office Visit [facility] [address] [place] [address] Marguerite Rodriguez OD [address] [place] [address] 05/22/2025 3:30 PM EDT Office Visit [facility] [address] [place] [address] Lorena Bolaños MD [address] [place] [address] documented as of this encounter Visit Diagnoses Not on filedocumented in this encounter Additional Health Concerns Assessment Noted Time PHQ-9 Depression Total Score: 12 025 7:49 AM EDT documented as of this encounter Care Teams Special Warfare Boat Operator Relationship Specialty Start Date End Date Natali Ortiz CNP [address] [place] [id number] PCP - General Family Medicine 03/19/25 documented as of this encounter
== END 2025-05-02 08:50 | disposition home or self-care (01) ==
LOC: HO.HHCX 08:49
PROVIDERS: Visit Provider Family Medicine
DX: R76.12 Nonspecific reaction to cell mediated immunity measurement of gamma interferon antigen response without active tuberculosis (principal)
CPT/HCPCS: 71046

== ENCOUNTER → 2025-05-02 08:50 | Outpatient (BNV) | payer MEDICAID, SELFPAY | PROVIDERS: Visit Provider Radiology Diagnostic Radiology | DX: R76.11 Nonspecific reaction to tuberculin skin test without active tuberculosis (principal) | CPT/HCPCS: 71046 ==

== ENCOUNTER 2025-06-28 23:07 | Emergency (ER) | payer MEDICAID, SELFPAY ==
[2025-06-28 23:21] VITALS: BP 132/76; PULSE 86; RESP 16; TEMP 37.1; O2SAT 96; BMI 29.1
[2025-06-28 23:50] LABS: Appearance Urine Cloudy; Glucose Urine UA Negative (Negative); PH 5.5 (5.0-9.0); Specific Gravity - Urine 1.020 (1.005-1.025); UMIC TRIGGER UACC YES
[2025-06-28 23:55] LABS: UACC Culture Trigger YES
[2025-06-28 23:59] LABS: Cannabinoid Screen Urine POSITIVE (Not Detect)
[2025-06-29 00:23] LABS: Hematocrit 33.6 % (37.0-47.0); Hemoglobin 12.0 g/dl (12.0-16.0); Imm Gran Abs Auto 0.01 X10*3/uL (0.00-0.03); Imm Gran Pct Auto 0.2 % (0.0-0.4); Lymphocytes Absolute Auto 1.5 X10*3/uL (1.2-4.9); MANUAL DIFF FLAG NO; Mean Corpuscular HGB Conc 35.7 g/dl (31.0-35.0); Mean Corpuscular Hemoglobin 32.5 pg (27.0-33.0); Mean Corpuscular Volume 91.1 fL (80.0-98.0); NRBC Abs Auto 0.000 X10*3/uL (0.0-0.012); NRBC Pct Auto 0.0 /100WBC (0.0-0.2); Platelet Count 185 X10*3/uL (160-400); Red Blood Count 3.69 X10*6/uL (4.20-5.50); White Blood Count 5.9 X10*3/uL (4.8-10.8)
[2025-06-29 00:37] LABS: Alanine Aminotransferase 16 U/L (0-31); Albumin Level 4.2 g/dL (3.5-5.0); Alkaline Phosphatase 56 U/L (39-117); Anion Gap 11 (12-20); Aspartate Amino Transferase 26 U/L (5-31); Blood Urea Nitrogen 16 mg/dL (9-16); Calcium 9.0 mg/dL (8.4-10.2); Carbon Dioxide 24 mmol/L (22-29); Chloride 110 mmol/L (96-108); Creatinine Clr Calc Pharmacy 104.8; Estimated Glomerular Filt Rate > 60; Potassium 4.0 mmol/L (3.3-5.1); Sodium 141 mmol/L (135-145); Total Protein 7.0 g/dL (6.5-8.0)
--- NOTE | 2025-06-29 00:42 | ED.PSYCH ---
HPI - Psych General Chief Complaint: Psychiatric Symptoms Stated Complaint: looking for dual diag. bed Time Seen by Provider: 06/28/25 23:35 History of Present Illness ED Provider: Zach Forbes MD HPI Narrative: 35-year-old female with polysubstance use disorder and depression coming in with depressive symptoms no SI or HI or psychotic symptoms. She has been using crack cocaine including just per before presenting here. She has no tachycardia, hypertension, headache, chest pain or other symptoms to suggest complication of drug use. Reporting seeking dual diagnosis behavioral health admission Related Data Home Medications ?Medication ?Instructions ?Recorded ?Confirmed aripiprazole 10 mg tablet 10 mg PO DAILY 06/28/25 06/28/25 budesonide-formoterol HFA 80 1 - 2 puff inhalation Q4H PRN 06/28/25 06/28/25 mcg-4.5 mcg/actuation aerosol wheezing inhaler (Symbicort) buprenorphine 100 mg/0.5 mL 100 mg subcut QMONTH 06/28/25 06/28/25 solution,exten.rel.subcutaneous syringe (Sublocade) docusate sodium 100 mg capsule 100 - 200 mg PO BEDTIME PRN 06/28/25 06/28/25 constipation gabapentin 100 mg capsule 100 mg PO BEDTIME insomnia 06/28/25 06/28/25 hydroxyzine pamoate 25 mg capsule 25 mg PO TID PRN anxiety 06/28/25 06/28/25 levetiracetam 500 mg tablet 500 mg PO BID 06/28/25 06/28/25 melatonin 5 mg tablet 10 mg PO BEDTIME 06/28/25 06/28/25 prazosin 1 mg capsule 1 mg PO BEDTIME 06/28/25 06/28/25 sennosides 8.6 mg tablet (senna) 8.6 - 17.2 mg PO BEDTIME PRN 06/28/25 06/28/25 constipation topiramate 50 mg tablet 150 mg PO BID 06/28/25 06/28/25 Previous Rx's ?Medication ?Instructions ?Recorded naloxone 4 mg/actuation nasal 4 mg intranasal Q2M PRN opioid 01/31/25 spray (Narcan) overdose 1 day #2 ea Allergies Allergy/AdvReac Type Severity Reaction Status Date / Time bee pollen (BEE STINGS) Allergy Severe Anaphylaxis Verified 06/28/25 23:25 transparent dressing Allergy Mild Hives Verified 06/28/25 23:25 (Tegaderm) divalproex sodium (From Allergy Unknown ITCHY RASH Verified 06/28/25 23:25 DEPAKOTE) sertraline (Zoloft) Allergy Unknown anaphylaxis Verified 06/28/25 23:25 kiwi (KIWI (ACTINIDIA AdvReac Unknown Difficulty Verified 06/28/25 23:25 CHINENSIS)) breathing, anaphylaxis PMFSH Past Medical History Medical History Opioid use disorder Epilepsia Hepatitis Pyelonephritis Social History Social History Household Members: Significant Other Housing: Apartment Do you presently have visiting nurse or other home services: No Unable to assess alcohol history related to: Unknown Patient Tobacco Use Status: Current everyday Tobacco user Tobacco use type: Cigarette Cigarette Packs Per Day: 0.5 Cigarettes Per Day: 10.0 e-Cigarette/Vaping Use: Currently Using Second Hand Smoke Exposure: No Substance Use Type: Crack/Cocaine service: No Sexual orientation: Straight/Heterosexual Physical Exam Exam: Exam: EXAM: Gen: Alert, awake, well appearing, well hydrated. Head: Atraumatic Eyes: Anicteric, Normal conjunctiva. ENT: Moist mucosa, no pallor. ? Neck: Supple. Skin: ?No observable rash or bruising on exposed or examined skin Respiratory: Breathing comfortably, No distress.Clear to auscultation bilaterally, symmetric chest expansion, No wheeze, rales, ronchi. Cardiovascular: Regular rate and rhythm. No murmurs or rub. Well perfused periphery, warm extremities. No edema. ? Abdominal: No focal tenderness. Soft, no objective distension. No palpable masses or obvious organomegaly. ?No guarding, no rebound tenderness or other peritoneal findings. : No flank tenderness. Neuro: Alert. Gross movement of all extremities intact. ?Face symmetric. Cranial nerves 2-12 grossly intact no tremor Psych: Calm. Cooperative. MSK: No grossly visible deformity. Vital signs: See flowsheet Vital Signs: Vital Signs: Last Vital Signs Temp 98.0 F 06/30/25 09:19 Pulse 68 06/30/25 09:19 Resp 18 06/30/25 09:19 BP 110/68 06/30/25 09:19 Pulse Ox 100 06/30/25 09:19 O2 Del Method Room Air 06/30/25 09:19 BMI result Body Mass Index 29.1 Course Course Course Narrative: Time: 11:26 Date: 06/29/25 Provider: Mitzy Vaca MD Patient in physician observation for psychiatric evaluation.? No acute events reported overnight. No current complaints. VS stable.? Patient is in bed search status/pending CARE team evaluation. Will continue to monitor. Time: 07:36 Date: 06/30/25 Provider: Mitzy Vaca MD Patient in physician observation for psychiatric evaluation.? No acute events reported overnight. No current complaints. VS stable.? Patient is in bed search status/pending CARE team evaluation. Will continue to monitor. Medications Administered Discontinued Medications Generic Name Dose Route Start Last Admin Trade Name Freq PRN Reason Stop Dose Admin Aripiprazole 10 mg 06/29/25 09:00 06/30/25 09:05 Aripiprazole 10 Mg Tablet PO 10 mg DAILY JUDY Administration Benzocaine 1 lozenge 06/29/25 09:56 06/29/25 10:01 Throat Lozenge, Medicated Lozenge MUCOUS MEM 06/29/25 09:57 1 lozenge ONCE ONE Administration Fluticasone/Vilanterol 1 puff 06/29/25 09:00 06/30/25 08:59 Fluticasone/Vilanterol 100/25 Blst.W.Dev INHALE Not Given DAILY JUDY Gabapentin 100 mg 06/29/25 01:15 06/29/25 20:12 Gabapentin 100 Mg Capsule PO 100 mg BEDTIME JUDY Administration Hydroxyzine HCl 25 mg 06/29/25 01:03 06/30/25 09:03 Hydroxyzine Hcl 25 Mg Tablet PO 25 mg TID PRN Administration Anxiety Levetiracetam 500 mg 06/29/25 09:00 06/30/25 08:58 Levetiracetam 500 Mg Tablet PO 500 mg BID JUDY Administration Melatonin 9 mg 06/29/25 21:00 06/29/25 20:05 Melatonin 3 Mg Tablet PO 9 mg BEDTIME JUDY Administration Nicotine Polacrilex 4 mg 06/29/25 06:08 06/29/25 06:11 Nicotine Polacrilex Lozenge 4 Mg Lozenge BUCCAL 06/29/25 06:09 4 mg ONCE ONE Administration Nicotine Polacrilex 4 mg 06/29/25 13:32 06/29/25 13:38 Nicotine Polacrilex Lozenge 4 Mg Lozenge BUCCAL 06/29/25 13:33 4 mg ONCE ONE Administration Nicotine Polacrilex 4 mg 06/29/25 18:03 06/30/25 03:41 Nicotine Polacrilex Lozenge 4 Mg Lozenge BUCCAL 4 mg Q2H PRN Administration Nicotine Cravings Prazosin HCl 1 mg 06/29/25 01:15 06/29/25 20:06 Prazosin Hcl 1 Mg Capsule PO 1 mg BEDTIME JUDY Administration Protocol Topiramate 150 mg 06/29/25 09:00 06/30/25 08:58 Topiramate 25 Mg Tablet PO 150 mg BID JUDY Administration Medical Decision Making Medical Decision Making MDM Narrative: Medical Decision Makin-year-old female with crack cocaine use with depressive symptoms. No SI or HI. Not psychotic. Cooperative. ECG without ischemic changes nor any symptomatology to suggest cocaine adverse effect. Reassuring non actionable workup thus far. Behavioral health consultation appreciated. Preliminary Favored Differential Diagnosis: Cocaine use disorder, depression without suicidality among additional considered etiologies Testing Interpreted Independently: Sinus rhythm rate 64 QTC 425. No acute ischemic changes Radiology or Lab testing Results Reviewed: Labs reviewed without actionable findings Consults: Care team/behavioral health Independent Historians/External Chart Reviews: Not Applicable Social Determinants of Health Impacting MDM/Planning: Substance use disorder complicating ability to follow up. Chronic psychiatric illness. Unsteady employment/housing 09:00 06/30/25 Patient is medically cleared. No acute distress. Seen by care team. Going to detox. Not suicidal not homicidal. Lab Data 06/29/25 00:18 06/29/25 00:18 Labs: Lab Results 06/28/25 06/28/25 06/29/25 Range/Units 23:39 23:40 00:18 WBC 5.9 (4.8-10.8) X10*3/uL RBC 3.69 L (4.20-5.50) X10*6/uL Hgb 12.0 (12.0-16.0) g/dl Hct 33.6 L (37.0-47.0) % MCV 91.1 (80.0-98.0) fL MCH 32.5 (27.0-33.0) pg MCHC 35.7 H (31.0-35.0) g/dl RDW 12.7 (11.0-16.0) % Plt Count 185 D (160-400) X10*3/uL MPV 9.0 L (9.4-12.3) fL Immature Gran % (Auto) 0.2 (0.0-0.4) % Neut % (Auto) 63.4 (45-73) % Lymph % (Auto) 25.8 (20-40) % [place] % (Auto) 8.1 (2-11) % Eos % (Auto) 2.0 (0-4) % Baso % (Auto) 0.5 (0-2) % Lymph # (Auto) 1.5 (1.2-4.9) X10*3/uL [place] # (Auto) 0.5 (0.1-1.2) X10*3/uL Eos # (Auto) 0.1 (0.0-0.4) X10*3/uL Baso # (Auto) 0.0 (0.0-0.2) X10*3/uL Abs Immat Gran (auto) 0.01 (0.00-0.03) X10*3/uL Absolute Neuts (auto) 3.8 (2.0-8.3) x10*3/uL Absolute Nucleated RBC 0.000 (0.0-0.012) X10*3/uL Nucleated RBC % (auto) 0.0 (0.0-0.2) /100WBC Sodium 141 (135-145) mmol/L Potassium 4.0 (3.3-5.1) mmol/L Chloride 110 H (96-108) mmol/L Carbon Dioxide 24 (22-29) mmol/L Anion Gap 11 L (12-20) BUN 16 (9-16) mg/dL Creatinine 0.82 (0.5-1.4) mg/dL Estim Creat Clear Calc 104.8 Estimated GFR > 60 Random Glucose 100 (60-115) mg/dL Calcium 9.0 (8.4-10.2) mg/dL Total Bilirubin 0.2 (0.0-1.0) mg/dL AST 26 (5-31) U/L ALT 16 (0-31) U/L Alkaline Phosphatase 56 (39-117) U/L Total Protein 7.0 (6.5-8.0) g/dL Albumin 4.2 (3.5-5.0) g/dL Urine Color Yellow Urine Appearance Cloudy Urine pH 5.5 (5.0-9.0) Ur Specific [place] 1.020 (1.005-1.025) Urine Protein Trace (Neg-Trace) mg/dL Urine Glucose (UA) Negative (Negative) mg/dL Urine Ketones Trace (Negative) mg/dL Urine Blood Negative (Negative) Urine Nitrite Negative (Negative) Ur Leukocyte Esterase Moderate (2+) H (Negative) Urine RBC 0-2 (0-2) /HPF Urine WBC >50 H (0-5) /HPF Ur Squamous Epith Cells >20 (0-2) /HPF Urine Bacteria 4+ (None Seen) Hyaline Casts 0-2 (0-2) /LPF Urine Opiates Screen Not Detected (Not Detect) Ur Buprenorphine Scrn Positive H (Not Detect) ng/mL Ur Oxycodone Screen Not Detected (Not Detect) ng/mL Urine Methadone Screen Not Detected (Not Detect) ng/mL Urine Fentanyl Screen Not Detected (Not Detect) Ur Barbiturates Screen Not Detected (Not Detect) Ur Phencyclidine Scrn Not Detected (Not Detect) Ur Amphetamines Screen Not Detected (Not Detect) U Benzodiazepines Scrn Not Detected (Not Detect) Urine Cocaine Screen POSITIVE H (Not Detect) U Marijuana (THC) Screen POSITIVE H (Not Detect) Discharge Plan Discharge Clinical Impression: Cocaine use disorder, Depression Patient Disposition: Xfer Inpatient Rehab Fac Instructions: Cocaine Use Disorder (ED) Prescriptions: No Action naloxone [Narcan] 4 mg/actuation spray,non-aerosol 4 mg intranasal Q2M PRN (Reason: opioid overdose) 1 Days Qty: 2 0RF Rx Instructions: spray 1 dose into ONE nostril; alternate nostrils w each dose until help arrives levetiracetam 500 mg tablet 500 mg PO BID prazosin 1 mg capsule 1 mg PO BEDTIME gabapentin 100 mg capsule 100 mg PO BEDTIME hydroxyzine pamoate 25 mg capsule 25 mg PO TID PRN (Reason: anxiety) Patient Comments: patient states she takes this med scheduled TID aripiprazole 10 mg tablet 10 mg PO DAILY topiramate 50 mg tablet 150 mg PO BID budesonide-formoterol [Symbicort] 80-4.5 mcg/actuation HFA aerosol inhaler 1 - 2 puff INHALATION Q4H PRN (Reason: wheezing) melatonin 5 mg tablet 10 mg PO BEDTIME Sublocade 100 mg/0.5 mL solution, extended rel syringe 100 mg subcut QMONTH Patient Comments: Patient states last dose was either 06/22/25 or 06/23/25 sennosides [senna] 8.6 mg tablet 8.6 - 17.2 mg PO BEDTIME PRN (Reason: constipation) docusate sodium 100 mg capsule 100 - 200 mg PO BEDTIME PRN (Reason: constipation) Referrals: Natali Ortiz TANK BUILDER [Primary Care Provider, Primary Care] Referral Note: Please go to [facility] Interventions: [place]-Suicide Risk Severity Scale Last Done: 06/30/25 09:07 ED Discharge Assessment Last Done: 06/30/25 09:19 Discharge Date/Time: 06/30/25 09:19 Print Language: Urdu
--- NOTE | 2025-06-29 01:03 | ECG_ITS ---
Test Reason : MED CLEARANCE Blood Pressure : */* mmHG Vent. Rate : 64 BPM Atrial Rate : 64 BPM P-R Int : 148 ms QRS Dur : 98 ms QT Int : 412 ms P-R-T Axes : 58 63 33 degrees QTcB Int : 425 ms Normal sinus rhythm Normal ECG When compared with ECG of 29-Jan-2025 08:14, No significant change was found Referred By: Zach Forbes Electronically Signed By: FAMILIA HOLDER MD
[2025-06-29 02:05] VITALS: BP 98/60; PULSE 75; RESP 18; O2SAT 98
[2025-06-29 02:06] VITALS: BP 98/60
--- NOTE | 2025-06-29 04:51 | PC.NURSE ---
patient woke up to use the restroom. ambulated w/o difficulty. strong/steady gait noted. no use of assistive devices needed. pt offers no complaints/requests at this time. back to resting in room w/ lights dimmed/eyes closed. pt currently pending addiction medicine consult at this time. plan of care ongoing.
[2025-06-29 05:54] VITALS: BP 102/61; PULSE 78; RESP 17; TEMP 36.2; O2SAT 99
--- NOTE | 2025-06-29 05:55 | PC.NURSE ---
pt awake/calm/cooperative. vitals obtained/wnl aside from slightly soft BP - pt denies any dizziness/lightheadedness. pt asking if she can go outside to smoke a cigarette. pt notified/aware that this it not allowed on hospital premises. pt offered alternatives. pt requesting nicotine lozenge. provider notified/aware. pending orders at this time.
[2025-06-29] MEDS: Nicotine Polacrilex Lozenge 4 MG LOZENGE BUCCAL ×4 (06:11→20:21)
--- NOTE | 2025-06-29 06:12 | PC.NURSE ---
pt medicated per provider order.
[2025-06-29] MEDS: Fluticasone/Vilanterol 100/25 BLST.W.DEV 1 PUFF INHALE (08:38)
--- NOTE | 2025-06-29 08:49 | PC.NURSE ---
medication administered per provider order. pt verbalizing increase in anxiety - early administration of atarax approved by . effectiveness pending.
[2025-06-29] MEDS: Throat Lozenge, Medicated LOZENGE 1 LOZENGE MUCOUS MEM (10:01)
--- NOTE | 2025-06-29 13:05 | MHC.CARE ---
CARE Team called [facility] to inquire about availability. The numerical control drill press operator advised CARE Team that the substance use tx program was closed for the day. She stated that to get in to the program, the pt must present to [facility] to complete an intake for entry. Pt will remain in the ED overnight and be Ly[facility]ed to [facility] in the morning.
[2025-06-29 17:04] VITALS: BP 113/73; PULSE 60; RESP 14; TEMP 36.8; O2SAT 99
[2025-06-29 20:06] VITALS: BP 105/65
[2025-06-30] MEDS: Nicotine Polacrilex Lozenge 4 MG LOZENGE BUCCAL (03:41)
[2025-06-30 09:19] VITALS: BP 110/68; PULSE 68; RESP 18; TEMP 36.7; O2SAT 100
--- NOTE | 2025-06-30 12:11 | MHC.CARE ---
Called pt and advised her of [facility] START program. Pt did not answer, START program information was left on voicemail.
== END 2025-06-30 09:19 ==
PROVIDERS: Emergency Provider Emergency Medicine
DX: F19.90 Other psychoactive substance use, unspecified, uncomplicated (principal); F32.A Depression, unspecified; G40.909 Epilepsy, unspecified, not intractable, without status epilepticus; K75.9 Inflammatory liver disease, unspecified; N12 Tubulo-interstitial nephritis, not specified as acute or chronic; F17.210 Nicotine dependence, cigarettes, uncomplicated
CPT/HCPCS: 36415; 80053; 80307; 81001; 85025; 87086; 93005; 99285; S9485

== ENCOUNTER → 2025-06-29 01:03 | Outpatient (BNV) | payer MEDICAID, SELFPAY | PROVIDERS: Emergency Provider Emergency Medicine; Visit Provider Internal Medicine Cardiovascular Disease | DX: Z13.6 Encounter for screening for cardiovascular disorders (principal) | CPT/HCPCS: 93010 ==